=== PATIENT | male | born 1945 | race Caucasian/White ===

== ENCOUNTER 2016-12-09 11:37 | Inpatient (IN) | payer OTHER ==
--- NOTE | 2016-12-09 11:46 | CPEKG ---
Heart Rate: 69 RR Interval: 870 P-R Interval: 160 QRSD Interval: 126 QT Interval: 400 QTC Interval: 429 P [place]: 73 QRS [place]: -62 T Wave [place]: 33 EKG Severity - ABNORMAL ECG - EKG Impression: SINUS RHYTHM EKG Impression: ATRIAL PREMATURE COMPLEX EKG Impression: NONSPECIFIC IVCD WITH LAD EKG Impression: LEFT VENTRICULAR HYPERTROPHY EKG Impression: ANTERIOR Q WAVES, POSSIBLY DUE TO LVH Electronically Signed By: Mitesh Araiza 09-Dec-2016 12:15:03
[2016-12-09] MEDS ORDERED: NS 500 ML IV ONE (11:47)
[2016-12-09] MEDS ORDERED: ASPIRIN 81 MG CHEWABLE TAB PO ONE (11:47)
[2016-12-09 12:03] LABS: % IMMATURE GRANULYOCYTES 0.4 % (0.0-1.1); ABSOLUTE IMMATURE GRANULOCYTES 0.03 10^3/uL (0.00-0.10); ADD DIFF? NO; ADD MORPH? NO; ADD SCAN? NO; ATYPICAL LYMPHOCYTE FLAG 10 (0-99); FRAGMENT RBC FLAG 0 (0-99); HEMATOCRIT 44.2 % (40.0-51.0); HEMOGLOBIN 14.6 g/dL (13.7-17.5); LEFT SHIFT FLG 0 (0-99); LIPEMIA HEMOLYSIS FLAG 80 (0-99); MEAN CELL HEMOGLOBIN 31.1 pg (27.9-34.1); MEAN CELL VOLUME 94.2 fL (81.5-99.8); MEAN PLATELET VOLUME 9.4 fL (8.7-11.7); PLATELET CLUMPS FLAG 10 (0-99); PLATELET COUNT 320 10^3/uL (150-400); RED BLOOD CELL COUNT 4.69 10^6/uL (4.40-6.38); RED CELL DISTRIBUTION WIDTH 13.3 % (11.5-15.2)
[2016-12-09 12:11] LABS: INR 1.35 (0.83-1.16); PROTIME(PATIENT) 16.7 SEC (12.0-15.0)
[2016-12-09 12:13] LABS: APTT 60.4 SEC (23.0-38.0)
--- NOTE | 2016-12-09 12:27 | EDPHY ---
H & P Stated Complaint: chest pain. Source: Patient, Old records, Other Exam Limitations: No limitations - Personal History Current Tetanus/Diphtheria Vaccine: Unsure Current Tetanus Diphtheria and Acellular Pertussis (TDAP): Unsure - Medical/Surgical History Hx Asthma: No Hx Chronic Respiratory Disease: No Hx Diabetes: No Hx Cardiac Disease: Yes Hx Renal Disease: No Hx Cirrhosis: No Hx Alcoholism: No Hx HIV/AIDS: No Hx Splenectomy or Spleen Trauma: No Other PMH: Aortic valve replacement 10 years ago, cardiac history- afib - Social History Smoking Status: Never smoked HPI/ROS: CHIEF COMPLAINT: Chest Pain HISTORY OF PRESENT ILLNESS: Patient has chest pain that originally started on Thursday. This was while traveling to [place] for [facility]. He was seen at an emergency department there and admitted to the hospital with a diagnosis of non STEMI. CT scan of the chest was performed and was negative for PE. Troponin was 3.39. He asked to be discharged home the following day on Thursday because his chest pain had resolved. He was discharged AMA although he had a heart catheterization planned for the following morning. He felt much better until Thursday afternoon. At that time he describes a. Of atrial fibrillation that lasted several hours and then resolved. This also happened again yesterday evening but lasted longer. During these times he has had some chest pain. Some shortness of breath. No lower extremity erythema edema. No abdominal pain. No nausea vomiting. Some mild cough. 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 While there, he made them aware of his scenario and they sent him to our facility by EMS for ACS workup. PRIOR CARDIAC WORKUP: Prior coronary artery disease with atrial valvulopathy, atrial fibrillation REVIEW OF SYSTEMS: Ten systems reviewed and are negative unless otherwise noted in the HPI EXAMINATION: General Appearance: Alert, no distress Head: normocephalic, atraumatic Eyes: Pupils equal and round, no conjunctival pallor or injection ENT, Mouth: Mucous membranes moist. Uvula midline. No erythema edema. Neck: Normal inspection, supple, non-tender Respiratory: Lungs are clear to auscultation. No wheezing, rhonchi or crackles. Cardiovascular: Regular rate and rhythm. Systolic murmur. Pulses intact distally symmetrically. Gastrointestinal: Abdomen is soft and nontender Back: non-tender, no bony abnormalities Neurological: A&O, nonfocal, normal gait. Strength is symmetric Skin: Warm and dry, no rash Extremities: Nontender, no pedal edema Psychiatric: Mood and affect normal DIFFERENTIAL DIAGNOSES: Including but not limited to in no particular order: Acute Chest Pain, ACS, Stable Angina, Pneumonia, PE, duodenitis, gastritis, esophagitis, GERD MDM: 12:00 p.m. Chest pain that originally started on Thursday while he was in [place]. He was actually admitted in [place] for a non STEMI. He signed himself out AMA on Thursday, 1 day prior to a scheduled heart catheterization. He was feeling significantly better at that time. However, his pain has returned intermittently since yesterday. He has also been in and out of atrial fibrillation. Hospice Nurse evaluated him today and sent him here due to the above. He is in no acute distress. His EKG does not show a STEMI at this time. Troponin is pending. We will proceed with admission to the hospitalist, and Dr. Pederson has already scheduled him for heart catheterization tomorrow morning. 1:00 p.m. Acute chest pain with elevated troponin. His troponin is elevated significantly better than what it was on Thursday as documented in his paperwork from the [facility]. He is not hypotensive. He has no ST elevation on EKG. He does have intermittent atrial fibrillation that is rate controlled. He is in no acute distress. I discussed the case with Dr. Pederson. He would like the patient admitted to the hospitalist and he will plan for a catheterization in the morning. Discussed the case with the hospitalist, the patient will be admitted to Dr. monroy to a PCU bed. He is admitted in stable condition. He takes Plavix and Pradaxa daily. He has also had aspirin that he chewed while in route with EMS to this facility. EKG: Interpreted by Dr. Jose G Black with PVCs. No acute ischemia SUPERVISION: Patient was evaluated in conjunction with the supervising physician. Please see their note for details. (Venkatesh Rosario) Constitutional: Initial Vital Signs Temperature (C) 36.9 C 12/09/16 11:37 Heart Rate 69 12/09/16 11:37 Respiratory Rate 18 12/09/16 11:37 Blood Pressure 141/80 H 12/09/16 11:37 O2 Sat (%) 95 12/09/16 11:37 O2 Delivery Mode Room Air Allergies/Adverse Reactions: No Known Allergies Allergy (Unverified 09/11/11 11:09) Home Medications: Medication Instructions Recorded Atorvastatin Calcium [Lipitor 20 20 mg PO DAILY 12/09/16 mg (*)] Cholecalciferol Vit D3 [Vitamin D3 1,000 units PO DAILY 12/09/16 (*)] Cyanocobalamin [Vitamin B12 (*)] 1,000 mcg PO DAILY 12/09/16 Dabigatran Etexilate Mesyl 150 mg PO BID 12/09/16 [Pradaxa 150 MG (*)] Finasteride [Propecia] 1 mg PO HS 12/09/16 Lisinopril [Zestril 5 mg (*)] 5 mg PO DAILY 12/09/16 Nebivolol HCl [Bystolic 5 mg (*)] 5 mg PO DAILY 12/09/16 lamoTRIgine [LamICTAL XR] 75 mg PO HS 12/09/16 Departure - Departure Disposition: [facility] Clinical Impression: Acute coronary syndrome Condition: Good
[2016-12-09 12:34] LABS: ANION GAP 10 mEq/L (8-16); CALCIUM 10.1 mg/dL (8.5-10.4); CARBON DIOXIDE 27 mEq/l (22-31); CHLORIDE 104 mEq/L (97-110); GLOMERULAR FILTRATION RATE > 60; GLUCOSE 126 mg/dL (70-100); POTASSIUM 4.8 mEq/L (3.5-5.2); SODIUM 141 mEq/L (134-144)
[2016-12-09 12:43] LABS: TROPONIN I 0.216 ng/mL (0-0.034)
[2016-12-09] MEDS ORDERED: ONDANSETRON 4 MG/2 ML VIAL IVP PRN (14:36)
[2016-12-09] MEDS ORDERED: ACETAMINOPHEN 325 MG TAB PO PRN (14:36)
[2016-12-09] MEDS ORDERED: ONDANSETRON DISINTEGRATING 4 MG TAB PO PRN (14:36)
[2016-12-09] MEDS: NEBIVOLOL HCL 5 MG TAB PO SCH (16:57)
--- NOTE | 2016-12-09 17:12 | PDGENHP ---
History and Physical - Chief Complaint Acute chest pain - History of Present Illness PCP: Dr. Carranza Primary jukebox route driver: Dr. Pederson Primary neurologist: Dr. Macedo HPI: 71-year-old male presenting with acute chest pain characterized as pressure located in his central chest with associated shortness of breath and nonproductive cough, onset of symptoms on the day prior to presentation, duration approximately 1 hour and resolving without intervention. Patient reports that he had been at rest when the symptoms began and they felt similar in character to his previous atrial fibrillation. They were much less in severity then the chest pain which he has experienced on 12/05, secondary to a non ST elevation myocardial infarction while he was visiting family in [place]. Prior to that event, the patient had otherwise been feeling well and he had completed his normal exercise routine on 12/04 without any chest pain or exertional symptoms. History Information - Allergies/Home Medication List Allergies/Adverse Reactions: No Known Allergies Allergy (Unverified 09/11/11 11:09) Home Medications: Atorvastatin Calcium [Lipitor 20 mg (*)] 20 mg PO DAILY 12/09/16 [Last Taken ] Cholecalciferol Vit D3 [Vitamin D3 (*)] 1,000 units PO DAILY 12/09/16 [Last Taken Unknown] Cyanocobalamin [Vitamin B12 (*)] 1,000 mcg PO DAILY 12/09/16 [Last Taken Unknown ] Dabigatran Etexilate Mesyl [Pradaxa 150 MG (*)] 150 mg PO BID 12/09/16 [Last Taken 12/08/16 21:00] Finasteride [Propecia] 1 mg PO HS 12/09/16 [Last Taken 12/08/16] Lisinopril [Zestril 5 mg (*)] 5 mg PO DAILY 12/09/16 [Last Taken 12/09/16] Nebivolol HCl [Bystolic 5 mg (*)] 5 mg PO DAILY 12/09/16 [Last Taken 12/08/16] lamoTRIgine [LamICTAL XR] 75 mg PO HS 12/09/16 [Last Taken 12/08/16] I have personally reviewed and updated: family history, medical history, social history, surgical history - Past Medical History atrial fibrillation (Symptomatic with Maze procedure at [facility], subsequent ablation), coronary artery disease (Recent non ST elevation myocardial infarction, no catheterization performed) Additional medical history: Seizure disorder. 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 Review of Systems ROS: 10pt was reviewed & negative except for what was stated in HPI & below Cardiac: Reports: chest pain Respiratory: Reports: cough, shortness of breath Physical Exam Temp Pulse Resp BP Pulse Ox 36.7 C 68 18 147/88 H 95 12/09/16 15:34 12/09/16 16:57 12/09/16 15:34 12/09/16 15:34 12/09/16 15:34 Constitutional: no apparent distress, appears nourished, not in pain Eyes: PERRL, anicteric sclera, EOMI Ears, Nose, Mouth, Throat: moist mucous membranes, hearing normal, ears appear normal, no oral mucosal ulcers Cardiovascular: regular rate and rhythym, systolic murmur (2/6 at the sternum), No tachycardia, No edema Respiratory: no respiratory distress, no rales or rhonchi, clear to auscultation Gastrointestinal: normoactive bowel sounds, soft, non-tender abdomen, no palpable masses Skin: warm, normal color, no rashes or abrasions, no fluctuance, no induration, No mottled Neurologic: AAOx3, sensation intact bilaterally, other (Some word-finding difficulty and thought blocking), No weakness Psychiatric: interacting appropriately, not anxious, not encephalopathic, thought process linear Lab Data & Imaging Review 12/09/16 11:45 12/09/16 11:45 WBC 8.32 10^3/uL (3.80-9.50) 12/09/16 11:45 RBC 4.69 10^6/uL (4.40-6.38) 12/09/16 11:45 Hgb 14.6 g/dL (13.7-17.5) 12/09/16 11:45 Hct 44.2 % (40.0-51.0) 12/09/16 11:45 MCV 94.2 fL (81.5-99.8) 12/09/16 11:45 MCH 31.1 pg (27.9-34.1) 12/09/16 11:45 MCHC 33.0 g/dL (32.4-36.7) 12/09/16 11:45 RDW 13.3 % (11.5-15.2) 12/09/16 11:45 Plt Count 320 10^3/uL (150-400) 12/09/16 11:45 MPV 9.4 fL (8.7-11.7) 12/09/16 11:45 Neut % (Auto) 72.4 % (39.3-74.2) 12/09/16 11:45 Lymph % (Auto) 15.1 % (15.0-45.0) 12/09/16 11:45 [place] % (Auto) 8.7 % (4.5-13.0) 12/09/16 11:45 Eos % (Auto) 2.8 % (0.6-7.6) 12/09/16 11:45 Baso % (Auto) 0.6 % (0.3-1.7) 12/09/16 11:45 Nucleat RBC Rel Count 0.0 % (0.0-0.2) 12/09/16 11:45 Absolute Neuts (auto) 6.03 10^3/uL (1.70-6.50) 12/09/16 11:45 Absolute Lymphs (auto) 1.26 10^3/uL (1.00-3.00) 12/09/16 11:45 Absolute Monos (auto) 0.72 10^3/uL (0.30-0.80) 12/09/16 11:45 Absolute Eos (auto) 0.23 10^3/uL (0.03-0.40) 12/09/16 11:45 Absolute Basos (auto) 0.05 10^3/uL (0.02-0.10) 12/09/16 11:45 Absolute Nucleated RBC 0.00 10^3/uL (0-0.01) 12/09/16 11:45 Immature Gran % 0.4 % (0.0-1.1) 12/09/16 11:45 Immature Gran # 0.03 10^3/uL (0.00-0.10) 12/09/16 11:45 PT 16.7 SEC (12.0-15.0) H 12/09/16 11:45 INR 1.35 (0.83-1.16) H 12/09/16 11:45 APTT 60.4 SEC (23.0-38.0) H 12/09/16 11:45 Sodium 141 mEq/L (134-144) 12/09/16 11:45 Potassium 4.8 mEq/L (3.5-5.2) 12/09/16 11:45 Chloride 104 mEq/L (97-110) 12/09/16 11:45 Carbon Dioxide 27 mEq/l (22-31) 12/09/16 11:45 Anion Gap 10 mEq/L (8-16) 12/09/16 11:45 BUN 19 mg/dL (7-23) 12/09/16 11:45 Creatinine 1.0 mg/dL (0.7-1.3) 12/09/16 11:45 Estimated GFR > 60 12/09/16 11:45 Glucose 126 mg/dL (70-100) H 12/09/16 11:45 Calcium 10.1 mg/dL (8.5-10.4) 12/09/16 11:45 Troponin I 0.216 ng/mL (0-0.034) H 12/09/16 11:45 NT-Pro-B Natriuret Pep 1420 pg/mL (0-125) H 12/09/16 11:45 Visualized and Interpreted Chest x-ray results: Yes Chest X-Ray results: other (Cardiomegaly without effusions) Visualized and Interpreted EKG results: Yes EKG Interpretation: Positive for: other (Normal sinus rhythm with biphasic T- wave in lead 3, poor R-wave progression in lead V3 through V4, isolated ST elevation in V3) Assessment & Plan Assessment: 71-year-old male presents with acute chest pain in the setting of recent non ST elevation myocardial infarction Plan: 1. Chest pain. Acute, new problem this provider, further workup indicated. Potential etiologies include of all vein non ST-elevation myocardial infarction versus post VT pericarditis versus symptomatic atrial fibrillation. -NPO in a.m., followed by cardiac catheterization per Dr. Pederson -reviewed outside records including 12/05 diagnostic study reports including CT angiograms demonstrating no evidence of pulmonary embolism, indication that his echocardiogram was normal -hold on follow-up echo unless requested by DrGisselle while -monitor on telemetry for recurrent arrhythmia with rapid ventricular response -repeat troponin level in a.m. 2. Coronary artery disease. Chronic, with non ST-elevation myocardial infarction on 12/05 the peak troponin of 3.4, current troponin level is most likely down trending from that event -continue Plavix, statin, beta-mikel, CONNOR-inhibitor -patient received full-dose aspirin on the day of this presentation -cardiac risk stratification as outlined above 3. Permanent atrial fibrillation and atrial flutter. Reviewed outside records including 05/15/[address] Bruno Neville, characterized patient's arrhythmia as combination of atrial fibrillation and atrial flutter, receiving DC cardioversion -continue to monitor on telemetry for RVR -continue on Pradaxa and beta-mikel Diet. Cardiac, NPO in a.m. Prophylaxis. Risk patient, on Pradaxa Code. Full Disposition. Anticipated discharge is 12/10, pending further workup as outlined above. I have discussed patient's presentation with Yesi Mccoy, hospitalist provider, she has signed out the patient to me for admission after receiving report from our emergency department.
[2016-12-09] MEDS: DABIGATRAN ETEXILATE MESYL 150 MG CAP PO SCH (21:00)
[2016-12-09] MEDS: LAMOTRIGINE 25 MG PO SCH (21:00)
[2016-12-09] MEDS ORDERED: LAMOTRIGINE 75 MG PO SCH (21:00)
[2016-12-09] MEDS: FINASTERIDE 1 MG PO SCH (21:03)
[2016-12-10 05:30] LABS: % IMMATURE GRANULYOCYTES 0.4 % (0.0-1.1); ABSOLUTE IMMATURE GRANULOCYTES 0.03 10^3/uL (0.00-0.10); ADD DIFF? NO; ADD MORPH? NO; ADD SCAN? NO; ATYPICAL LYMPHOCYTE FLAG 30 (0-99); FRAGMENT RBC FLAG 0 (0-99); HEMATOCRIT 37.9 % (40.0-51.0); HEMOGLOBIN 12.5 g/dL (13.7-17.5); LEFT SHIFT FLG 0 (0-99); LIPEMIA HEMOLYSIS FLAG 80 (0-99); MEAN CELL HEMOGLOBIN 30.5 pg (27.9-34.1); MEAN CELL VOLUME 92.4 fL (81.5-99.8); MEAN PLATELET VOLUME 9.3 fL (8.7-11.7); PLATELET CLUMPS FLAG 0 (0-99); PLATELET COUNT 298 10^3/uL (150-400); RED CELL DISTRIBUTION WIDTH 13.3 % (11.5-15.2)
[2016-12-10 05:59] LABS: ANION GAP 7 mEq/L (8-16); CARBON DIOXIDE 25 mEq/l (22-31); CHLORIDE 107 mEq/L (97-110); GLOMERULAR FILTRATION RATE > 60; GLUCOSE 84 mg/dL (70-100); POTASSIUM 5.1 mEq/L (3.5-5.2); SODIUM 139 mEq/L (134-144)
[2016-12-10 06:10] LABS: TROPONIN I 0.162 ng/mL (0-0.034)
--- NOTE | 2016-12-10 09:13 | PDCARCONS ---
Cardiology Consult Chief Complaint: chest discomfort Requesting Physician: Dr. Pederson History of Present Illness: HPI: Regulo is a 71 year old man with a history of atrial fibrillation s/p MAZE, recent NSTEMI, hyperlipidemia, bicuspid aortic valve s/p replacement and seizure disorder. The patient visited his sister in [place] last night (12/04). On Thursday afternoon he started feeling a tightness in the back of his neck. He though he had pulled a muscle from some physical work earlier in the day; however, the pain radiated to his sternum and it became painful to breathe. The pain was described as a dull ache 4/10 in severity. He presented to the emergency department at [facility] where he was found to have a positive troponin and was believed to have an NSTEMI. The patient had cardiac catheterization scheduled in [place], but cancelled this procedure AMA as he was feeling better. The patient felt generally well until Thursday when the chest discomfort started to return. He had a scheduled follow up with Dr. Pederson and was advised to go to the emergency department after review of his records and history. The patient does not smoke. He is not having active chest discomfort. He denies shortness of breath, palpitations, syncope, near-syncope or other cardiac symptoms. Assessment/Plan: 1. Chest discomfort with elevated troponin now trending down (0.216 ng/mL yesterday, 0.162 ng/mL). His 12-lead EKG is abnormal showing Q waves in V1 and V2 as well as dominant R wave in V1and V2 LAFB, non-specific ST T wave abnormalities, and LVH. We will proceed with cardiac catheterization for objective assessment of his coronary perfusion. Took one dose of Pradaxa last night. I have explained the risks, expected benefits and potential complications of this course of action with the patient and he wishes to proceed as planned. Some potential benefits include angina relief, definitive assessment of coronary anatomy and LV function. Complications have been described as , permanent and disabling stroke, heart attack, abnormal heart rhythm, bleeding and damage to blood vessels resulting in tissue or limb loss. Bleeding is a particular issue in his case becasue of the need of full dose anticoagulation. 2. Atrial fibrillation s/p MAZE. In normal sinus rhythm today. History Information - Allergies/Home Medication List Allergies/Adverse Reactions: No Known Allergies Allergy (Unverified 09/11/11 11:09) Home Medications: Atorvastatin Calcium [Lipitor 20 mg (*)] 20 mg PO DAILY 12/09/16 [Last Taken ] Cholecalciferol Vit D3 [Vitamin D3 (*)] 1,000 units PO DAILY 12/09/16 [Last Taken Unknown] Cyanocobalamin [Vitamin B12 (*)] 1,000 mcg PO DAILY 12/09/16 [Last Taken Unknown ] Dabigatran Etexilate Mesyl [Pradaxa 150 MG (*)] 150 mg PO BID 12/09/16 [Last Taken 12/08/16 21:00] Finasteride [Propecia] 1 mg PO HS 12/09/16 [Last Taken 12/08/16] Lisinopril [Zestril 5 mg (*)] 5 mg PO DAILY 12/09/16 [Last Taken 12/09/16] Nebivolol HCl [Bystolic 5 mg (*)] 5 mg PO DAILY 12/09/16 [Last Taken 12/08/16] lamoTRIgine [LamICTAL XR] 75 mg PO HS 12/09/16 [Last Taken 12/08/16] I have personally reviewed and updated: family history, medical history, social history, surgical history - Past Medical History atrial fibrillation, hyperlipidemia - Surgical History Reports: ablation Additional surgical history: bicuspid valve - Family History Positive for: CAD - Social History Smoking Status: Never smoked Alcohol Use: Sober (Previous alcohol abuse) Drug Use: None Cardiac History - Cardiac History Past Cardiac History: ABLATION Cardiac Risk Factors: lipidemia, age > 65, male Timing/Duration: Days Severity Scale: 4 Location: substernal Activities at Onset: activity SKYLER Risk Evaluation age greater or equal to 65: yes greater or equal to 3 CAD risk factors: yes known CAD(stenosis greater or eqaul to 50%): no ASA use in past 7 days: yes severe angina(greater or equal to 2 episodes in 24hrs): no EKG ST changes greater or equal to 0.5mm: yes positive cardiac marker: yes Total Score: 6 SKYLER Score: 40.9% risk Age in Years: 65-74 Sex: Male Physical Exam Temp Pulse Resp BP Pulse Ox 36.7 C 61 17 138/67 H 96 12/10/16 07:19 12/10/16 07:19 12/10/16 07:19 12/10/16 07:19 12/10/16 07:19 Constitutional: no apparent distress, appears nourished, not in pain Cardiovascular: regular rate and rhythym, systolic murmur, No edema Peripheral Pulses: 2+: carotid (R), carotid (L) Respiratory: no respiratory distress Gastrointestinal: normoactive bowel sounds Skin: warm, normal color Psychiatric: interacting appropriately, not anxious Lymph, Heme, Immunologic: no cervical LAD Lab and Imaging 12/10/16 04:27 12/10/16 04:27 WBC 6.70 10^3/uL (3.80-9.50) 12/10/16 04:27 RBC 4.10 10^6/uL (4.40-6.38) L 12/10/16 04:27 Hgb 12.5 g/dL (13.7-17.5) L 12/10/16 04:27 Hct 37.9 % (40.0-51.0) L 12/10/16 04:27 MCV 92.4 fL (81.5-99.8) 12/10/16 04:27 MCH 30.5 pg (27.9-34.1) 12/10/16 04:27 MCHC 33.0 g/dL (32.4-36.7) 12/10/16 04:27 RDW 13.3 % (11.5-15.2) 12/10/16 04:27 Plt Count 298 10^3/uL (150-400) 12/10/16 04:27 MPV 9.3 fL (8.7-11.7) 12/10/16 04:27 Neut % (Auto) 56.2 % (39.3-74.2) 12/10/16 04:27 Lymph % (Auto) 27.3 % (15.0-45.0) 12/10/16 04:27 [place] % (Auto) 10.1 % (4.5-13.0) 12/10/16 04:27 Eos % (Auto) 5.1 % (0.6-7.6) 12/10/16 04:27 Baso % (Auto) 0.9 % (0.3-1.7) 12/10/16 04:27 Nucleat RBC Rel Count 0.0 % (0.0-0.2) 12/10/16 04:27 Absolute Neuts (auto) 3.76 10^3/uL (1.70-6.50) 12/10/16 04:27 Absolute Lymphs (auto) 1.83 10^3/uL (1.00-3.00) 12/10/16 04:27 Absolute Monos (auto) 0.68 10^3/uL (0.30-0.80) 12/10/16 04:27 Absolute Eos (auto) 0.34 10^3/uL (0.03-0.40) 12/10/16 04:27 Absolute Basos (auto) 0.06 10^3/uL (0.02-0.10) 12/10/16 04:27 Absolute Nucleated RBC 0.00 10^3/uL (0-0.01) 12/10/16 04:27 Immature Gran % 0.4 % (0.0-1.1) 12/10/16 04:27 Immature Gran # 0.03 10^3/uL (0.00-0.10) 12/10/16 04:27 PT 16.7 SEC (12.0-15.0) H 12/09/16 11:45 INR 1.35 (0.83-1.16) H 12/09/16 11:45 APTT 60.4 SEC (23.0-38.0) H 12/09/16 11:45 Sodium 139 mEq/L (134-144) 12/10/16 04:27 Potassium 5.1 mEq/L (3.5-5.2) 12/10/16 04:27 Chloride 107 mEq/L (97-110) 12/10/16 04:27 Carbon Dioxide 25 mEq/l (22-31) 12/10/16 04:27 Anion Gap 7 mEq/L (8-16) L 12/10/16 04:27 BUN 22 mg/dL (7-23) 12/10/16 04:27 Creatinine 1.0 mg/dL (0.7-1.3) 12/10/16 04:27 Estimated GFR > 60 12/10/16 04:27 Glucose 84 mg/dL (70-100) 12/10/16 04:27 Calcium 9.0 mg/dL (8.5-10.4) 12/10/16 04:27 Troponin I 0.162 ng/mL (0-0.034) H 12/10/16 04:27 NT-Pro-B Natriuret Pep 1420 pg/mL (0-125) H 12/09/16 11:45 Visualized and Interpreted EKG results: Yes EKG Interpretation: Positive for: LVH, normal sinsus rhythm, NS ST wave abnormalities, other (LAFB), Q waves
[2016-12-10] MEDS: LISINOPRIL 5 MG TAB PO SCH (09:37)
[2016-12-10] MEDS: CYANO/VITAMIN B12 1000 MCG TAB PO SCH (09:37)
[2016-12-10] MEDS: ATORVASTATIN CALCIUM 20 MG TAB PO SCH (09:38)
[2016-12-10] MEDS: NEBIVOLOL HCL 5 MG TAB PO SCH (09:38)
[2016-12-10] MEDS: CHOLECALCIFEROL VIT D3 1,000 UNITS TAB PO SCH (09:38)
[2016-12-10] MEDS: DABIGATRAN ETEXILATE MESYL 150 MG CAP PO SCH (09:44)
[2016-12-10] MEDS ORDERED: NS 1,000 ML IV ONE (12:58)
[2016-12-10] MEDS ORDERED: DIAZEPAM 5 MG TAB PO ONE (12:58)
[2016-12-10] MEDS ORDERED: FAMOTIDINE 20 MG TAB PO ONE (12:58)
[2016-12-10] MEDS ORDERED: diphenhydrAMINE 25 MG CAP PO ONE ×2 (12:58→13:24)
[2016-12-10] MEDS ORDERED: ASPIRIN EC 325 MG TAB PO ONE (12:58)
--- NOTE | 2016-12-10 13:21 | CPEKG ---
Heart Rate: 55 RR Interval: 1091 P-R Interval: 172 QRSD Interval: 128 QT Interval: 456 QTC Interval: 437 P [place]: 63 QRS [place]: -63 T Wave [place]: 6 EKG Severity - ABNORMAL ECG - EKG Impression: SINUS RHYTHM EKG Impression: NONSPECIFIC IVCD WITH LAD EKG Impression: LEFT VENTRICULAR HYPERTROPHY EKG Impression: ANTERIOR Q WAVES, POSSIBLY DUE TO LVH Electronically Signed By: Chavez Henderson 11-Dec-2016 10:15:40
[2016-12-10] MEDS ORDERED: FAMOTIDINE 20 MG TAB ONE (13:24)
[2016-12-10] MEDS ORDERED: DIAZEPAM 5 MG TAB ONE (13:24)
[2016-12-10] MEDS ORDERED: fentaNYL 100 MCG/2 ML INJ ONE (14:26)
[2016-12-10] MEDS ORDERED: LIDOCAINE 1% 30 ML SDV ONE (14:26)
[2016-12-10] MEDS ORDERED: HEPARIN 10,000 UNIT/10 ML MDV ONE (14:27)
[2016-12-10] MEDS ORDERED: IOPAMIDOL (ISOVUE-370) 150 ML BTL IV ONE (14:27)
[2016-12-10] MEDS ORDERED: MIDAZOLAM 2 MG/2 ML VIAL ONE (14:27)
[2016-12-10] MEDS ORDERED: VERAPAMIL 5 MG/2 ML VIAL ONE (14:27)
[2016-12-10] MEDS ORDERED: BIVALIRUDIN 250 MG/5 ML VIAL IV ONE (14:58)
[2016-12-10] MEDS ORDERED: NITROGLYCERIN 1,500 MCG/15 ML VIAL MISC ONE (14:58)
--- NOTE | 2016-12-10 15:43 | PDDXCAT ---
Diagnostic Cath Note - . Date: 12/10/16 Intervention: None *Procedure 1. selective coronary angiography 2. abdominal aortogram Indication: CCS class IV angina, positive troponin, s/p NSTEMI in [place]. Access: Right radial artery (a plethysmography trace assisted Lasha's Test was used to document dual artery supply to the hand and index finger prior to access ). We moved to a right femoral approach half way through the case for further support as it was it difficult to access the right coronary artery. *Materials Left Heart Cath size: 5F, 6F (femoral) Left Heart Cath materials: JL3.5, JR4.0, pigtail, Brooks Brite XBC, Short J- Chrisney x 2. *Findings-Selective Coronary Angiography LM: The left main is ~8 mm in size and bifurcates into an LAD and circumflex system. There is no evidence of flow-limiting disease. LAD: The proximal LAD is ~4 mm in size. There is a 50% mid LAD lesion just distal to the first diagonal takeoff. There is no flow-limiting disease with SKYLER III flow throughout. LCX: The proximal left circumflex is dominant and ~3 mm in size. There are luminal irregularities consistent with atherosclerosis. Maximal luminal stenosis of 20% without flow-limiting disease and SKYLER III flow throughout. RCA: The right coronary artery was not selectively injected. It appears to be non-dominant with moderate luminal disease. We did not identify flow-limiting obstruction. AO: 134/66/91 mmHg Abdominal aortogram: The thoracic aorta is enlarged and tortuous. There is a pouch of the proximal thoracic aorta, presumably where to aorta was "deaired" during the aortic valve surgery. *Summary Complications: None Estimated blood loss: <50ml Closure method: TR Band, Angioseal Assessment/Conclusion: 1. Non-flow limiting [place] vessel coronary artery disease. Maximal luminal stenosis of 40-50% in the mid LAD just distal to the first diagonal takeoff. The lesion is hazy, which could be consistent with plaque rupture; however, with SKYLER III flow and no dye streaming or staining plaque rupture is less likely, the patient can be safely treated medically. There were luminal irregularities throughout the left-dominant system consistent with atherosclerosis and moderate coronary artery disease. 2. Aortopathy with an enlarged and tortuous thoracic aorta. This will need to continue to be followed with periodic echocardiogram. The right radial approach could not be used because of tortuosity. 3. We could not cross the aortic valve despite several attempts to do so an left heart catheterization was not performed. If repeat catheterization is performed, a femoral or left radial approach is recommended. Patient Problems: Problems Problem Status Onset Acute coronary syndrome Acute
[2016-12-10] MEDS ORDERED: NITROGLYCERIN 0.4 MG BTL SL PRN (16:55)
[2016-12-10] MEDS ORDERED: ATROPINE SULFATE 1 MG/10 ML SYR IVP PRN (16:55)
[2016-12-10 17:36] LABS: CHOLESTEROL 127 mg/dL (140-220); HIGH DENSITY LIPOPROTEIN 47 mg/dL (40-65); LDL/HDL RATIO 1.49 RATIO (1.00-3.64); LOW DENSITY LIPOPROTEIN 70 mg/dL (80-100); NON-HIGH DENSITY LIPOPROTEIN 80 mg/dL (90-129); TRIGLYCERIDE 53 mg/dL (40-150); VERY LOW DENSITY LIPOPROTEINS 10 mg/dL (8-25)
--- NOTE | 2016-12-10 17:56 | HOSPPROG ---
Hospitalist Progress Note Assessment/Plan: Assessment: 71-year-old male presents with acute chest pain in the setting of recent non ST elevation myocardial infarction Plan: 1. Chest pain. Acute, either 2/2 NSTEMI vs. rate-related ischemia -currently chest pain free -get Echo to r/o pericarditis/effusion as cause of symptoms 2. Coronary artery disease. Chronic, with non ST-elevation myocardial infarction on 12/05 the peak troponin of 3.4, current troponin level is down trending -d/w Dr. Nash, cath demonstrated hazy possible plaque in LAD but w/o features typical of plaque rupture, RCA non-dominant but could not access, no stents placed, medical mgmt recommended -cont ASA 81, ACEi, bblocker, statin (LDL at goal) -challenging cath, requiring attempt in R radial, then groin, unable to get cath across AV 3. Permanent atrial fibrillation and atrial flutter. Potential cause of ischemic symptoms, monitor on tele additional 24hrs -continue to monitor on telemetry for RVR -continue on Pradaxa and beta-mikel 4. Acute urinary retention. Patient unable to void post-cath, must remain supine -bladder scan, straight cath PRN -unable to safely discharge Diet. Cardiac Prophylaxis. Risk patient, on Pradaxa Code. Full Disposition. Anticipated discharge uncertain, upgrade to inpatient admission status re : anticipated LOS > 48hrs for reasonable medical necessity including CAD w/ recent NSTEMI and chest pain, cath unable to access any intervenable area , requiring ongoing tele monitoring as he is high risk of arrhythmia, and further w/u including echo in AM. Subjective: Patient reports he is unable to urinate, he is curious about cardiac rehab we counseled him about slowly progressing his level of physical activity moving forward Objective: Vital Signs Temp Pulse Resp BP Pulse Ox 36.7 C 61 17 138/67 H 96 12/10/16 07:19 12/10/16 07:19 12/10/16 07:19 12/10/16 07:19 12/10/16 07:19 Laboratory Results 12/10/16 04:27 12/10/16 04:27 12/09/16 12/10/16 12/11/16 05:59 05:59 05:59 Intake Total 1500 Balance 1500 PT 16.7 SEC (12.0-15.0) H 12/09/16 11:45 INR 1.35 (0.83-1.16) H 12/09/16 11:45 - Time Spent With Patient Time Spent with Patient: greater than 35 minutes Time Spent with Patient: Greater than 35 minutes spent on this patients care, greater than 50% of time spent counseling, educating, and coordinating care regarding the above mentioned plan. - Physical Exam Constitutional: no apparent distress, appears nourished, not in pain Cardiovascular: regular rate and rhythym, no murmur, rub, or gallop Neurologic: AAOx3 Psychiatric: not encephalopathic, thought process linear, anxious, No agitated ICD10 Worksheet Patient Problems: Problems Problem Status Onset Acute coronary syndrome Acute
[2016-12-10] MEDS ORDERED: HALOPERIDOL 1 MG TAB PO ONE (19:03)
[2016-12-10] MEDS: LAMOTRIGINE 25 MG PO SCH (19:53)
[2016-12-10] MEDS: FINASTERIDE 1 MG PO SCH (19:57)
[2016-12-11 07:26] VITALS: BP 119/65; PULSE 62; RESP 17; TEMP 97.7; O2SAT 98
[2016-12-11] MEDS: ATORVASTATIN CALCIUM 20 MG TAB PO SCH (08:24)
[2016-12-11] MEDS: CYANO/VITAMIN B12 1000 MCG TAB PO SCH (08:24)
[2016-12-11] MEDS: CHOLECALCIFEROL VIT D3 1,000 UNITS TAB PO SCH (08:24)
[2016-12-11] MEDS: LISINOPRIL 5 MG TAB PO SCH (08:24)
[2016-12-11] MEDS: NEBIVOLOL HCL 5 MG TAB PO SCH (08:25)
[2016-12-11] MEDS ORDERED: ASPIRIN EC 81 MG TAB PO SCH (09:00)
--- NOTE | 2016-12-11 09:35 | PDCARPN ---
Cardiology Progress Note Chief Complaint: 71 year old admitted with NSTEMI that occurred over the weekend. [facility] with non flow limiting CAD. 50% mid LAD. Tortuous vessels. Right groin access. Asymptomatic this am. Assessment/Plan: Assessment: 1. NSTEMI 2. CAD 3. PAF 4. sp bioprosthetic AVR Plan: -plavix 75 mg daily -hold pradaxa until Sat 12/13 -increase atorvastatin to 80 mg daily -echo pending this am -home after echo -follow up in our office in one week 12/11/16 09:33 Objective: Vital Signs (8 Hrs) Temp Pulse Resp BP Pulse Ox 12/11/16 07:23 36.5 C 62 17 119/65 98 12/11/16 04:00 36.8 C 66 18 91/63 L 94 Intake/Output (24 Hrs) 12/10/16 12/11/16 12/12/16 05:59 05:59 05:59 Intake Total 700 Output Total 800 Balance -100 Intake: Oral (ml) 700 Output: Urine (ml) 800 Urinal 800 Other: Weight 68 kg Number of Voids Toilet 2 Urinal 2 Bladder Scan Volume (ml) Toilet 57 Result Diagrams: 12/10/16 04:27 12/10/16 04:27 ICD10 Worksheet Patient Problems: Problems Problem Status Onset Acute coronary syndrome Acute
--- NOTE | 2016-12-11 11:05 | ECHO ---
[id number] + + [address] : : [place] [address] : : [phone] + + Adult Echocardiographic Report + + :Name: ADRIAN GRACE HStudy Date: 12/11/2016 10:32 AM : : Hospital Admission Number: [id number] Loc ation: 220: :: 1945 Gender: Male Height: 67 in : :Age: 71 yrs Race: WH Weight: 151 lb : :Reason For Study: Eval LV function : : BSA: 1.8 me ters2 : + + MMode/2D Measurements \T\ Calculations IVSd: 1.1 cm LVIDd: 5.3 cm EDV(Teich): Ao root diam: LVPWd: 0.89 cm 135.0 ml 4.6 cm LA dimension: 3.9 cm LVOT diam: 2.1 cmLVLd ap4: 7.9 cm SV(MOD-sp4): LVOT area: EDV(MOD-sp4): 65.0 ml 3.5 cm2 84.0 ml LVLs ap4: 6.5 cm ESV(MOD-sp4): 19.0 ml EF(MOD-sp4): 77.4 % Normal Measurement Values: + + :LVIDd (3.5-5.7cm) IVSd (0.6-1.1cm) LVPWd (0.6-1.1cm) Aortic Root (2.0-3.7cm)Left Atrium (1.5-4.0cm): :LV Vol(d) (76-115ml) LV Vol(s) (29-48ml) Ejec Fraction (50-65%)PV Carlos (0.6- 1.2m/s) TV Carlos (0.4-1.0m/s) : :MV E Carlos (0.8-1.0m/s)MV A Carlos (0.3-1.0m/s)LVOT Carlos (0.7-1.2m/s) Asc Ao Carlos ( 0.9-1.8m/s) : + + Doppler Measurements \T\ Calculations MV E max carlos: Ao V2 max: LV V1 max: SV(LVOT): 92.3 cm/sec 239.0 cm/sec 84.2 cm/sec 63.7 ml MV A max carlos: Ao max P.8 mmHg LV V1 max P.6 cm/sec Ao mean P.8 mmHg MV E/A: 1.4 12.0 mmHg LV V1 mean PG: Ao V2 mean: 1.0 mmHg 160.5 cm/sec LV V1 mean: Ao V2 VTI: 50.3 cm 55.2 cm/sec JESSICA(I,D): 1.3 cm2 LV V1 VTI: 18.4 cm JESSICA(V,D): 1.2 cm2 Left Ventricle The left ventricle is normal in size. There is mild concentric left ventricular hypertrophy. Left ventricular systolic function is normal. Ejection Fraction = 65-70%%. There is Doppler evidence for diastolic dysfunction. The left ventricular wall motion is normal. Atria The left atrial size is normal. Right atrial size is normal. Mitral Valve The mitral valve is normal in structure and function. There is moderate mitral annular calcification. There is no mitral regurgitation noted. Tricuspid Valve The tricuspid valve is normal in structure and function. Aortic Valve There is no aortic insufficiency. The prosthetic aortic valve is well- seated. Bioprosthetic leaflets are thin and move normally. The gradient is normal for this prosthetic aortic valve. Pulmonic Valve The pulmonic valve is normal in structure and function. There is no pulmonic valvular regurgitation. Great Vessels Moderate aortic root dilatation. Moderately dilated ascending aorta. Pericardium/Pleural There is no pericardial effusion. Conclusion Moderately dilated ascending aorta. There is mild concentric left ventricular hypertrophy. Ejection Fraction = 65-70%%. There is Doppler evidence for diastolic dysfunction. Moderate aortic root dilatation. Final Reading Physician: Christiano Pederson electronically signed on 12/11/2016 11:03 AM Ordering Physician: Sergio Nash Performed By: Chey Jurado, [employer]
--- NOTE | 2016-12-11 16:38 | PDDCSUM ---
Discharge Summary Discharge Summary: DISCHARGE SUMMARY FOLLOW-UP ITEMS: Follow up with Dr. Pederson next week DATE OF ADMISSION: 12/09/16 DATE OF DISCHARGE: 12/11/2016 DISCHARGE DIAGNOSES: 1. Chronic coronary artery disease 2. Recent non ST elevation myocardial infarction 3. Permanent atrial fibrillation and atrial flutter 4. Acute urinary retention 5. Acute chest pain 6. Mild cognitive impairment CONSULTATIONS: Cardiology PROCEDURES / IMAGING: Cardiac catheterization demonstrating 50% mid LAD lesion, tortuous vessels, unable to access non dominant right coronary artery, echocardiogram demonstrating diastolic dysfunction, normal ejection fraction, no focal wall motion abnormalities CHIEF COMPLAINT: Acute chest pain SUBJECTIVE: Patient is feeling well at time of discharge, no recurrent chest pain PHYSICAL EXAM ON DISCHARGE: Systolic blood pressure is 130, heart rate 60, afebrile overnight, satting well on room air, lungs are clear to auscultation bilaterally, patient is alert awake oriented x3 LABS ON DISCHARGE: Troponin 0.1 HOSPITAL COURSE BY PROBLEM: 1. Chronic coronary artery disease. Patient presented after he experienced a recent non ST elevation myocardial infarction on 12/05 with peak troponin of 3.4 and down trending troponin level thereafter. The patient did have some post myocardial infarction acute chest pain leading to this repeat presentation. Given that he had declined cardiac catheterization at the time of his acute event and that he was very high risk of critical stenosis, he was taken urgently to the cardiac bundle tier and labeler by Dr. Nash but no focal lesion was visualized. The patient did have a hazy lesion in the mid-LAD accounting for approximately 50% stenosis and he did have a non dominant right coronary artery which could not be accessed through the aortic valve, and it was unclear whether the patient had a experienced his acute event in that artery, but after attempts to access through the right radial and right groin, the procedure was stopped and the patient was determined to be most appropriate for medical management. That being said, the patient was considered to be high risk of potential a rhythmic complication recurrent angina so he was monitored on telemetry and required inpatient admission with reassessment of his ejection fraction an echocardiogram in the a.m.. His echocardiogram demonstrated no focal wall motion abnormalities so it is suspected that his original NSTEMI was the result of small vessel disease. His aspirin was adjusted to Plavix, his statin was increased in dosage, and he was continued on CONNOR-inhibitor and beta- mikel. He will follow up with Dr. Pederson next week. We recommended holding off on physical exertion until that time and then introducing him in to cardiac rehab. 2. Permanent atrial fibrillation and atrial flutter. Patient did experience what he considers fibrillation symptoms prior to presentation and this may have been a potentiate cause of his ischemic symptoms and NSTEMI. He did not have any evidence of acute rapid ventricular response during this hospitalization and he was continued on Pradaxa and beta-mikel. We recommended that he temporarily discontinue his Pradaxa until 12/13 given the recent cardiac catheterization and his risk of pseudoaneurysm formation. 3. Acute urinary retention. Patient was unable to void post catheterization but he did not require eventual straight catheterization. He was voiding safely time of discharge and should follow up with primary care provider for likely underlying BPH. 4. Mild cognitive impairment. The patient consistently demonstrated difficulty with understanding and retaining information and consequently a significant portion of his instructions were either hand written or type for the patient. There were concerns that he may not be receiving appropriate level of support in his home environment. I discussed our concerns regarding his cognitive state with Dr. Pederson, and Dr. Pederson will follow up with the patient's primary care provider and they will potentially refer him back to Dr. Macedo or for more extensive neuropsychiatric testing. 5. Acute chest pain. Most likely secondary to either AFib RVR or his recent NSTEMI. Patient is currently chest pain-free. DISCHARGE MEDICATIONS: Please see official discharge medication reconciliation sheet in chart , atorvastatin 80 daily, Plavix 75 daily, discontinue aspirin. Sublingual nitroglycerin prescribed. DISCHARGE INSTRUCTIONS: Follow up with Dr. Pederson next week, PCP thereafter. TIME SPENT: Greater than 30 minutes were spent on direct patient care, as well as discharge planning and preparation.
== END 2016-12-11 11:55 | disposition home or self-care (01) | DRG 281 ==
LOC: EDUNIT# → INTOOBSV 13:02 → F2W 15:13 → OBSVTOIN 12-10 17:57
PROVIDERS: ADMIT Internal Medicine; ATTEND Internal Medicine
DX: I25.10 Atherosclerotic heart disease of native coronary artery without angina pectoris (principal); I21.4 Non-ST elevation (NSTEMI) myocardial infarction; I48.92 Unspecified atrial flutter; I48.2 Chronic atrial fibrillation; R33.9 Retention of urine, unspecified
CPT/HCPCS: C1760; C1769; C1887; G0378; J0583; J1644; J2250; J3010; Q9967

== ENCOUNTER 2016-12-25 02:26 | Emergency (ER) | payer OTHER ==
[2016-12-25] MEDS ORDERED: ASPIRIN 81 MG CHEWABLE TAB PO ONE (02:33)
--- NOTE | 2016-12-25 02:40 | CPEKG ---
Heart Rate: 66 RR Interval: 909 P-R Interval: 188 QRSD Interval: 134 QT Interval: 416 QTC Interval: 436 P [place]: 78 QRS [place]: -67 T Wave [place]: 44 EKG Severity - ABNORMAL ECG - EKG Impression: SINUS RHYTHM EKG Impression: NONSPECIFIC IVCD WITH LAD EKG Impression: LEFT VENTRICULAR HYPERTROPHY EKG Impression: UNCHANGED IN COMPARISON TO PRIOR Electronically Signed By: Chavez Henderson 26-Dec-2016 16:26:06
[2016-12-25 02:52] LABS: % IMMATURE GRANULYOCYTES 0.3 % (0.0-1.1); ABSOLUTE IMMATURE GRANULOCYTES 0.03 10^3/uL (0.00-0.10); ADD DIFF? NO; ADD MORPH? NO; ADD SCAN? NO; ATYPICAL LYMPHOCYTE FLAG 0 (0-99); FRAGMENT RBC FLAG 0 (0-99); HEMATOCRIT 40.1 % (40.0-51.0); HEMOGLOBIN 13.1 g/dL (13.7-17.5); LEFT SHIFT FLG 0 (0-99); LIPEMIA HEMOLYSIS FLAG 80 (0-99); MEAN CELL HEMOGLOBIN 30.3 pg (27.9-34.1); MEAN CELL HEMOGLOBIN CONCENTR. 32.7 g/dL (32.4-36.7); MEAN CELL VOLUME 92.8 fL (81.5-99.8); MEAN PLATELET VOLUME 8.9 fL (8.7-11.7); PLATELET CLUMPS FLAG 20 (0-99); PLATELET COUNT 369 10^3/uL (150-400); RED BLOOD CELL COUNT 4.32 10^6/uL (4.40-6.38); RED CELL DISTRIBUTION WIDTH 13.3 % (11.5-15.2)
--- NOTE | 2016-12-25 03:08 | EDPHY ---
H & P Stated Complaint: cp Time Seen by Provider: 12/25/16 02:41 HPI/ROS: HPI The patient presents with chest pain which began around 2:00 a.m. this morning when he awoke in the night. The pain is a dull ache and is in his lower sternum , it radiates to his right scapula. The pain has been constant, it is not exertional, it is not associated with shortness of breath, nausea, vomiting, diaphoresis or dizziness. It feels somewhat similar to pain he has had previously. He was admitted to our hospital from December 09 to for cardiac evaluation. He underwent cardiac catheterization and was found to have CAD with 50% stenosis of the LAD, nondominant RCA which could not be accessed, no stents were placed. REVIEW OF SYSTEMS Constitutional: No fever, no chills. Eyes: No discharge. ENT: No sore throat. Cardiovascular: Positive for chest pain, no palpitations. Respiratory: No cough, no shortness of breath. Gastrointestinal: No abdominal pain, no vomiting. Genitourinary: No hematuria. Musculoskeletal: No back pain. Skin: No rashes. Neurological: No headache. PMHx: CAD, recent cardiac catheterization, being medically managed; atrial fibrillation, mild cognitive impairment Soc Hx: Lives at home with his PHYSICAL General Appearance: Alert, no distress Eyes: Pupils equal and round no pallor or injection ENT, Mouth: Mucous membranes moist Respiratory: There are no retractions, lungs are clear to auscultation Cardiovascular: Regular rate and rhythm, lower sternum is tender to palpation Gastrointestinal: Abdomen is soft and non-tender, no masses, bowel sounds normal Neurological: A&O, moves all extremities Skin: Warm and dry, no rashes Musculoskeletal: Neck is supple non tender Extremities: symmetrical, full range of motion Psychiatric: Patient is oriented X 3, there is no agitation Source: Patient, Old records Exam Limitations: No limitations - Personal History Current Tetanus/Diphtheria Vaccine: Yes Current Tetanus Diphtheria and Acellular Pertussis (TDAP): Yes - Medical/Surgical History Hx Asthma: No Hx Chronic Respiratory Disease: No Hx Diabetes: No Hx Cardiac Disease: Yes Hx Renal Disease: No Hx Cirrhosis: No Hx Alcoholism: No Hx HIV/AIDS: No Hx Splenectomy or Spleen Trauma: No Other PMH: Aortic valve replacement 12 years ago, cardiac history- afib, ablations for a fib - Social History Smoking Status: Never smoked Constitutional: Initial Vital Signs Temperature (C) 36.9 C 12/25/16 02:32 Heart Rate 72 12/25/16 02:32 Respiratory Rate 16 12/25/16 02:32 Blood Pressure 132/91 H 12/25/16 02:32 O2 Sat (%) 96 12/25/16 02:32 O2 Delivery Mode Room Air Allergies/Adverse Reactions: No Known Allergies Allergy (Unverified 12/25/16 02:30) Home Medications: Medication Instructions Recorded Cholecalciferol Vit D3 [Vitamin D3 1,000 units PO DAILY 12/09/16 (*)] Cyanocobalamin [Vitamin B12 (*)] 1,000 mcg PO DAILY 12/09/16 Dabigatran Etexilate Mesyl 150 mg PO BID 12/09/16 [Pradaxa 150 MG (*)] Finasteride [Propecia] 1 mg PO HS 12/09/16 Lisinopril [Zestril 5 mg (*)] 5 mg PO DAILY 12/09/16 Nebivolol HCl [Bystolic 5 mg (*)] 5 mg PO DAILY 12/09/16 lamoTRIgine [LamICTAL XR] 75 mg PO HS 12/09/16 Atorvastatin Calcium 80 mg PO DAILY #30 tablet 12/11/16 Clopidogrel Bisulfate [Clopidogrel] 75 mg PO DAILY #30 tablet 12/11/16 Nitroglycerin [Nitrostat 0.4 mg 0.4 mg SL PRN PRN #20 btl 12/11/16 (*)] Medical Decision Making - Diagnostics EKG Interpretation: EKG #1: Complete interpretation has been separately recorded in the [facility] archive. Summary impression: LVH, no ST segment elevation or depression EKG #2: Complete interpretation has been separately recorded in the [facility] archive. Summary impression: Unchanged from 1st EKG Imaging Results: Chest x-ray two view shows no cardiomegaly, no infiltrate, unchanged from prior , interpreted by me, radiology interpretation is pending. ED Course/Re-evaluation: In the emergency room, patient was kept on the monitor technician. He had no events. His pain continued in the emergency room, though was quite mild. Labs were checked and were unremarkable including repeat troponin. On reassessment, EKG was unchanged, without any ischemic changes. Given no EKG changes and no elevated troponin more than 4 hours after onset of pain, this pain is unlikely to be ischemic in etiology. The patient felt well enough to go home. I consulted with Dr. Tobin is the on-call relocation services specialist for Dr. Pederson. We reviewed the case. We agreed that the patient could be discharged and that his pain is unlikely to be cardiac, given negative serial troponins, EKGs. I have discussed this with the patient, he is comfortable going home. I have offered him admission, however he declines. I have asked that he follow up with his PMD in the next 1 day. I have advised that he use Tylenol as needed to treat any pain but have a low threshold to return to the emergency room if the pain is worse or if he develops any other concerning symptoms. Differential Diagnosis: This is a 71-year-old man with CAD, status post recent cardiac catheterization, who presents from home with chest pain which occurred while at rest in his sternum. On exam, he has normal vital signs and is well-appearing. He does not have any tenderness. Initial EKG is unremarkable. Differential diagnosis includes ACS, GERD, musculoskeletal pain. - Data Points Laboratory Results: Laboratory Results 12/25/16 02:39 12/25/16 02:39 12/25/16 12/25/16 12/25/16 05:59 02:39 02:39 WBC 10.52 10^3/uL H 10^3/uL (3.80-9.50) RBC 4.32 10^6/uL L 10^6/uL (4.40-6.38) Hgb 13.1 g/dL L g/dL (13.7-17.5) Hct 40.1 % % (40.0-51.0) MCV 92.8 fL fL (81.5-99.8) MCH 30.3 pg pg (27.9-34.1) MCHC 32.7 g/dL g/dL (32.4-36.7) RDW 13.3 % % (11.5-15.2) Plt Count 369 10^3/uL 10^3/uL (150-400) MPV 8.9 fL fL (8.7-11.7) Neut % (Auto) 70.7 % % (39.3-74.2) Lymph % (Auto) 15.0 % % (15.0-45.0) [place] % (Auto) 11.1 % % (4.5-13.0) Eos % (Auto) 2.3 % % (0.6-7.6) Baso % (Auto) 0.6 % % (0.3-1.7) Nucleat RBC Rel Count 0.0 % % (0.0-0.2) Absolute Neuts (auto) 7.44 10^3/uL H 10^3/uL (1.70-6.50) Absolute Lymphs (auto) 1.58 10^3/uL 10^3/uL (1.00-3.00) Absolute Monos (auto) 1.17 10^3/uL H 10^3/uL (0.30-0.80) Absolute Eos (auto) 0.24 10^3/uL 10^3/uL (0.03-0.40) Absolute Basos (auto) 0.06 10^3/uL 10^3/uL (0.02-0.10) Absolute Nucleated RBC 0.00 10^3/uL 10^3/uL (0-0.01) Immature Gran % 0.3 % % (0.0-1.1) Immature Gran # 0.03 10^3/uL 10^3/uL (0.00-0.10) Sodium 140 mEq/L mEq/L (134-144) Potassium 4.2 mEq/L mEq/L (3.5-5.2) Chloride 105 mEq/L mEq/L (97-110) Carbon Dioxide 25 mEq/l mEq/l (22-31) Anion Gap 10 mEq/L mEq/L (8-16) BUN 20 mg/dL mg/dL (7-23) Creatinine 1.1 mg/dL mg/dL (0.7-1.3) Estimated GFR > 60 Glucose 116 mg/dL H mg/dL (70-100) Calcium 9.1 mg/dL mg/dL (8.5-10.4) Troponin I 0.013 ng/mL ng/mL < 0.012 ng/mL ng/mL (0-0.034) (0-0.034) NT-Pro-B Natriuret Pep 776 pg/mL H pg/mL (0-125) Medications Given: Discontinued Medications Aspirin (Aspirin) 324 mg PO EDNOW ONE Stop: 12/25/16 02:34 Last Admin: 12/25/16 02:44 Dose: 324 mg Departure - Departure Disposition: Home, Routine, Self-Care Clinical Impression: Chest pain Qualifiers: Chest pain type: other chest pain Qualified Code(s): R07.89 - Other chest pain Condition: Good Instructions: Chest Pain (ED) Referrals: Emma Carranza MD [Primary Care Provider] - As per Instructions
[2016-12-25 03:14] LABS: ANION GAP 10 mEq/L (8-16); CALCIUM 9.1 mg/dL (8.5-10.4); CARBON DIOXIDE 25 mEq/l (22-31); CHLORIDE 105 mEq/L (97-110); CREATININE 1.1 mg/dL (0.7-1.3); GLOMERULAR FILTRATION RATE > 60; GLUCOSE 116 mg/dL (70-100); POTASSIUM 4.2 mEq/L (3.5-5.2); SODIUM 140 mEq/L (134-144)
[2016-12-25 03:26] LABS: TROPONIN I < 0.012 ng/mL (0-0.034)
--- NOTE | 2016-12-25 06:34 | CPEKG ---
Heart Rate: 55 RR Interval: 1091 P-R Interval: 200 QRSD Interval: 124 QT Interval: 456 QTC Interval: 437 P [place]: 24 QRS [place]: -64 T Wave [place]: -3 EKG Severity - ABNORMAL ECG - EKG Impression: SINUS RHYTHM EKG Impression: IVCD Electronically Signed By: Marly Lopez 25-Dec-2016 07:04:12
[2016-12-25 07:03] VITALS: BP 124/71
[2016-12-25] MEDS ORDERED: ACETAMINOPHEN 500 MG TAB PO ONE (07:20)
[2016-12-25 07:38] VITALS: PULSE 58; RESP 16; TEMP 98.2; O2SAT 96
== END 2016-12-25 07:38 | disposition home or self-care (01) ==
DX: R07.89 Other chest pain (principal); I25.10 Atherosclerotic heart disease of native coronary artery without angina pectoris; Z95.5 Presence of coronary angioplasty implant and graft

== ENCOUNTER → 2017-08-10 | Outpatient (CLI) | payer OTHER | LOC: BMCIMAGING 10:23 | PROVIDERS: ATTEND Orthopaedic Surgery Hand Surgery | DX: M17.0 Bilateral primary osteoarthritis of knee (principal); M25.561 Pain in right knee; M25.562 Pain in left knee ==

== ENCOUNTER → 2018-05-30 | Outpatient (CLI) | payer OTHER | LOC: BMCIMAGING 09:30 | PROVIDERS: ATTEND Family Medicine | DX: M25.561 Pain in right knee (principal); M23.91 Unspecified internal derangement of right knee ==

== ENCOUNTER → 2018-06-04 | Outpatient (CLI) | payer OTHER | LOC: BMCIMAGING 08:37 | PROVIDERS: ATTEND Physician Assistant | DX: M17.0 Bilateral primary osteoarthritis of knee (principal) ==

== ENCOUNTER → 2018-07-02 | Outpatient (CLI) | payer OTHER | LOC: BMCIMAGING 10:17 | PROVIDERS: ATTEND Physician Assistant | DX: S69.91XA Unspecified injury of right wrist, hand and finger(s), initial encounter (principal) ==

== ENCOUNTER → 2018-08-30 | Outpatient (CLI) | payer OTHER | LOC: BHFA 13:15 | PROVIDERS: ATTEND Internal Medicine Cardiovascular Disease | DX: I48.0 Paroxysmal atrial fibrillation (principal); I25.10 Atherosclerotic heart disease of native coronary artery without angina pectoris; I10 Essential (primary) hypertension ==

== ENCOUNTER 2018-08-31 09:08 | Day surgery (SDC) | payer OTHER ==
[2018-08-31] MEDS ORDERED: BENZOCAINE UNIT DOSE SPRAY HURRICAINE MM ONE (09:16)
[2018-08-31] MEDS ORDERED: MIDAZOLAM 2 MG/2 ML VIAL IVP ONE (09:16)
[2018-08-31] MEDS ORDERED: NS 500 ML IV ONE (09:16)
[2018-08-31] MEDS ORDERED: ATROPINE SULFATE 1 MG/10 ML SYR IVP ONE (09:16)
[2018-08-31] MEDS ORDERED: fentaNYL 100 MCG/2 ML INJ IVP ONE (09:16)
--- NOTE | 2018-08-31 09:31 | PDANEPAE ---
ANE History of Present Illness here for TERRI/CV ANE Past Medical History - Cardiovascular History Hx Hypertension: Yes Hx Arrhythmias: Yes Hx Chest Pain: No Hx Coronary Artery / Peripheral Vascular Disease: Yes Hx CHF / Valvular Disease: Yes Hx Palpitations: No - Pulmonary History Hx COPD: No Hx Asthma/Reactive Airway Disease: No Hx Recent Upper Respiratory Infection: No Hx Oxygen in Use at Home: No Hx Sleep Apnea: Yes - Endocrine History Hx Diabetes: No - Renal History Hx Renal Disorders: No - Liver History Hx Hepatic Disorders: No - Chronic Pain History Chronic Pain: Yes ANE Review of Systems Review of systems is: negative Review of Systems: - Exercise capacity Exercise capacity: >=4 METS ANE Patient History - Allergies Allergies/Adverse Reactions: No Known Allergies Allergy (Unverified 12/25/16 02:30) - Home Medications Home medications: home medication list seen and reviewed Home Medications: Cholecalciferol Vit D3 [Vitamin D3 (*)] 1,000 units PO DAILY 12/09/16 [Last Taken Unknown] Cyanocobalamin [Vitamin B12 (*)] 1,000 mcg PO DAILY 12/09/16 [Last Taken Unknown ] Dabigatran Etexilate Mesyl [Pradaxa 150 MG (*)] 150 mg PO BID 12/09/16 [Last Taken 12/08/16 21:00] Finasteride [Propecia] 1 mg PO HS 12/09/16 [Last Taken 12/08/16] Lisinopril [Zestril 5 mg (*)] 5 mg PO DAILY 12/09/16 [Last Taken 12/09/16] Nebivolol HCl [Bystolic 5 mg (*)] 5 mg PO DAILY 12/09/16 [Last Taken 12/08/16] lamoTRIgine [LamICTAL XR] 75 mg PO HS 12/09/16 [Last Taken 12/08/16] Pradaxa 08/31/18 [Last Taken 08/31/18 07:00] - NPO status NPO Status: no food or drink >8 hours - Smoking Hx Smoking Status: Never smoked ANE Labs/Vital Signs - Labs Result Diagrams: 08/31/18 09:30 - Vital Signs Vital Signs: reviewed preoperatively; see RN documention for details ANE Physical Exam - Airway Neck exam: FROM Mallampati Score: Class 1 - Pulmonary Pulmonary: no respiratory distress - Cardiovascular Cardiovascular: regular rate and rhythym - ASA Status ASA Status: III ANE Anesthesia Plan Anesthesia Plan: GA with mask
--- NOTE | 2018-08-31 10:08 | PDHPUP ---
History & Physical Update H&P update statement: This history and physical update is based on an assessment of the patient which was completed after admission or registration (within 24 hours), but prior to the surgery/procedure. H&P update: H&P reviewed & patient examined, no change in patient's condition since H&P completed
[2018-08-31 10:11] LABS: INR 1.44 (0.83-1.16); PROTIME(PATIENT) 17.7 SEC (12.0-15.0)
[2018-08-31] MEDS ORDERED: PROPOFOL 200 MG/20 ML VIAL ONE (10:25)
--- NOTE | 2018-08-31 10:37 | PDTEE1 ---
TERRI Cardioversion Procedure Procedure: electrical cardioversion, transesophageal echo Indications: atrial fibrillation Consent: signed and in chart Anticoagulation: other (pradaxa) Procedural Details: Pads were placed in anterior-posterior position. TERRI probe was advanced and standard images obtained. There is no evidence of left atrial or left atrial appendage thrombus. Synchronized cardioversion attempt #1: 200J Results: normal sinus rhythm Conclusions: successful TERRI cardioversion Patient Problems: Problems Problem Status Onset Chronic Disease Mgmt/Transitional Care Acute Acute coronary syndrome Acute
--- NOTE | 2018-08-31 10:38 | POSTANESTH ---
Post Anesthetic Evaluation Cardiovascular Status: Normal, Stable Respiratory Status: Normal, Stable Level of Consciousness/Mental Status: Moderately Sleepy Pain Control: Adequate, Prn Tx Ordered Nausea/Vomiting Control: Adequate, Prn Tx Ordered Complications Possibly Related to Anesthesia: None Noted
--- NOTE | 2018-09-01 06:46 | CPEKG ---
Test Reason : OPEN Blood Pressure : / mmHG Vent. Rate : 101 BPM Atrial Rate : 114 BPM P-R Int : 117 ms QRS Dur : 131 ms QT Int : 361 ms P-R-T Axes : -62 -64 079 degrees QTc Int : 468 ms Atrial fibrillation Left bundle branch block Confirmed by Chauncey Tobin ([id number]) on 09/01/2018 6:45:52 AM Referred By: Confirmed By:Chauncey Tobin
--- NOTE | 2018-09-01 06:47 | CPEKG ---
Test Reason : OPEN Blood Pressure : / mmHG Vent. Rate : 064 BPM Atrial Rate : 064 BPM P-R Int : 204 ms QRS Dur : 133 ms QT Int : 450 ms P-R-T Axes : 255 -66 004 degrees QTc Int : 465 ms Sinus or ectopic atrial rhythm Nonspecific IVCD with LAD Left ventricular hypertrophy Confirmed by Chauncey Tobin ([id number]) on 09/01/2018 6:46:24 AM Referred By: Confirmed By:Chauncey Tobin
--- NOTE | 2018-09-01 13:11 | ECHO ---
[email or web address] [place] [id number] Main: [phone] Fax: Transesophageal Echocardiography Name: ADRIAN GRACE MR#: [id number] Study Date: 08/31/2018 Study Time: 10:20 AM Date of : 1945 Age: 73 year(s) Height: ( ) Weight: ( ) BSA: Gender: Male Examination: TERRI Indication: Pre Cardioversion Image Quality: Contrast: Requested by: Rob Monge Heart Rate: Rhythm: BP: / Procedure Staff Alternative Medicine Practitioner: Lorne Cobos RDCS Reading Physician: Rob Monge MD Requesting Provider: TERRI Exam Details Measurements: Chambers Valvular Assessment AV/MV Valvular Assessment TV/PV Normal Normal Normal Name Value Range Name Value Range Name Value Range Additional Measurements: Findings: Left Ventricle: Normal global systolic LV function. No regional wall motion abnormality. Right Ventricle: Normal RV function. Left Atrial Appendage: Good color flow doppler in the left atrial appendage. No thrombus in left appendage. Mitral Valve: The mitral valve has been repaired. There is mild mitral regurgitation.. Aortic Valve: The aortic valve is a bioprosthesis. Normal functioning aortic valve prosthesis. Tricuspid Valve: The tricuspid valve appears normal. Pulmonic Valve: The pulmonic valve is normal in appearance and function. Aorta: Patient: ARDIAN GRACE Study Date: 08/31/2018 Page 1 of 2 10:20 AM The aorta is normal. Pericardium: No pericardial effusion. Exam Comments: Proceeded with successful elective DC cardioversion.. l1n (No Signature Object) Patient: ADRIAN GRACE Study Date: 08/31/2018 Page 2 of 2 10:20 AM [id number]
== END 2018-08-31 11:55 | disposition home or self-care (01) ==
LOC: FCATH 09:08
PROVIDERS: ATTEND Internal Medicine Interventional Cardiology
PROC: 5A2204Z Restoration of Cardiac Rhythm, Single (ICD-10-PCS; principal; 2018-08-31)
PROC: B245ZZ4 Ultrasonography of Left Heart, Transesophageal (ICD-10-PCS; principal; 2018-08-31)
DX: I48.91 Unspecified atrial fibrillation (principal); I34.0 Nonrheumatic mitral (valve) insufficiency
CPT/HCPCS: J2704

== ENCOUNTER 2018-09-24 00:14 | Emergency (ER) | payer OTHER ==
--- NOTE | 2018-09-24 00:23 | EDPHY ---
H & P Time Seen by Provider: 09/24/18 00:22 HPI/ROS: HPI CHIEF COMPLAINT: Fall with head injury, head laceration on Pradaxa HISTORY OF PRESENT ILLNESS: This is a 73-year-old male, history of AFib, on Pradaxa, presents emergency room after states that he got up out of bed and went to check to make sure his dogs were inside. After doing so he went to the bathroom he thinks he was going to use the bathroom however he states he "tripped on something" and then fell backwards with head strike on the ground. He is unsure exactly what he tripped over. He is not exactly sure why he felt he fell backwards with head strike on the ground. He denies LOC. He denies headache or neck pain. Denies chest pain or shortness of breath, denies palpitations. He arrives to the emergency room by private vehicle has an occiput laceration. He denies neck pain or chest pain or headache. Past Medical History: AFib on Pradaxa, hyperlipidemia, coronary artery disease , seizures, cognitive impairment Past Surgical History: Maze procedure Social History: Denies drugs alcohol tobacco. Family History: Noncontributory ROS REVIEW OF SYSTEMS: 10 Systems were reviewed and negative with the exception of the elements mentioned in the history of present illness. Exam Constitutional nontoxic, triage nursing summary reviewed, vital signs reviewed , awake/alert. Eyes normal conjunctivae and sclera, EOMI, PERRLA. HENT head/neck: Posterior left sided occiput punctate 2CM, laceration and hematoma present, matting of blood in the hair, no midline cervical spine pain or step-offs or crepitus, otherwise atraumatic head and neck exam moist mucus membranes, no epistaxis, neck supple/ no meningismus, no raccoon eyes. Respiratory clear to auscultation bilaterally, normal breath sounds, no respiratory distress, no wheezing. Cardiovascular rate normal, regular rhythm, no murmur, no edema, distal pulses normal. Gastrointestinal soft, non-tender, no rebound, no guarding, normal bowel sounds, no distension, no pulsatile mass. Genitourinary no CVA tenderness. Musculoskeletal no midline vertebral tenderness, full range of motion, no calf swelling, no tenderness of extremities, no meningismus, good pulses, neurovascularly intact. Skin pink, warm, & dry, no rash, skin atraumatic. Neurologic awake, alert and oriented x 3, AAOx3, moves all 4 extremities equally, motor intact, sensory intact, CN II-XII intact, normal cerebellar, normal vision, normal speech. Psychiatric normal mood/affect. Heme/Lymph/Immune no lymphadenopathy. Differential Diagnosis: Includes but is not limited to in a particular order vasovagal syncope, orthostatic syncope, dehydration, cardiac arrhythmia, bradycardia, electrolyte disturbance, intracranial bleed, skull fracture, scalp laceration, scalp hematoma, bleeding on Pradaxa Medical Decision Making: Plan for this patient patient thinks he tripped and fell, will obtain EKG, basic blood work, troponin, CT scan head without contrast CT cervical spine without contrast for trauma, chest x-ray and re- evaluate. Re-evaluation: EKG interpretation by me on record in [employer] system. Impression time of EKG 0050 sinus rhythm rate of 63, right bundle-branch block and left anterior fascicular block present. LVH present. When I compare this to his old EKG 2018 very similar morphology no acute change CT scan head without contrast and CT cervical spine without contrast faxed to me by direct Radiology at 1:06 a.m. Shows occipital scalp hematoma, diffuse atrophy, atherosclerosis, osteopenia degenerative disc disease at C5 but no acute traumatic fracture of the skull or intracranial bleed and no cervical spine fracture. 0132: Patient left occiput hematoma has a very small punctate laceration that has significant bleeding. He is on Pradaxa. Multiple august were placed in this wound to close the punctate laceration that is bleeding. A pressure dressing was applied. This patient is 73 years old on Pradaxa due to AFib. The patient fell. Has significant scalp hematoma with bleeding. The bleeding was controlled with pressure dressing and august. However the patient is elderly, has cognitive impairment, is on Pradaxa, and currently living alone as his is in [place] he reports. Plan will be to admit to the trauma service overnight for observation. There is no intracranial bleed or cervical spine fracture. Will consult Trauma surgery for admission observation. Laceration Repair Procedure: Verbal Consent was obtained, Under sterile conditions, left occiput hematoma, punctate 2CM Laceration. The wound was copiously irrigated with sterile fluid, the wound was explored for foreign bodies there were none visualized, the wound was explored with a sterile glove to the base. THERE IS A HEMATOMA, WITH MATTED BLOOD, AND A SMALL PULSATING BLEEDING, 2CM PUNCTATE LACERATION, MULTIPLE AUGUST WERE PLACED IN THIS WOUND, TWO WERE INITIALLY PLACED, HOWEVER IT CONTINUED TO BLEED, AND 3 MORE AUGUST WERE PLACED TO HELP BRING THE HEMATOMA/SMALL LAC TOGETHER TO HELP WITH HEMOSTATIS. PRESSURE DRESSING PLACED. FIVE AUGUST were placed in this patient 's left occiput laceration. He had good close approximation of the wound edges. He Tolerated this well. HE UNDERSTANDS TO HAVE AUGUST REMOVE DIN 7 DAYS. Patient had multiple august placed due to the left occiput hematoma bleeding, oozing despite 2 august over the punctate laceration. Multiple are applied for good hemostasis with pressure dressing. I have consult Trauma Surgery Dr. Rich, agrees for admission. Dr. Rich agrees for admission. Plan for observation given scalp hematoma on Pradaxa. Given his age, at home alone at this time, due to being out of town, mild cognitive decline. Plan for observation. 0212: Patient agrees for observation tonight. Reason for observation significant scalp hematoma, laceration and bleeding on Pradaxa. He is home alone. Mild cognitive decline. Would like to observe to make sure there is no further bleeding or delayed injury additionally has nobody home at this time to help him or watch him. He has agreed for admission observation. Chest x-ray one view: Cardiomegaly present. No evidence of acute traumatic injury. Source: Patient - Medical/Surgical History Hx Asthma: No Hx Chronic Respiratory Disease: No Hx Diabetes: No Hx Cardiac Disease: Yes Hx Renal Disease: No Hx Cirrhosis: No Hx Alcoholism: No Hx HIV/AIDS: No Hx Splenectomy or Spleen Trauma: No Other PMH: Aortic valve replacement 12 years ago, cardiac history- afib, ablations for a fib - Social History Smoking Status: Never smoked Constitutional: Initial Vital Signs Temperature (C) 36.4 C 09/24/18 00:21 Heart Rate 67 09/24/18 00:21 Respiratory Rate 16 09/24/18 00:21 Blood Pressure 162/89 H 09/24/18 00:21 O2 Sat (%) 97 09/24/18 00:21 O2 Delivery Mode Room Air Allergies/Adverse Reactions: No Known Allergies Allergy (Verified 09/25/18 18:01) Home Medications: Medication Instructions Recorded Cholecalciferol Vit D3 [Vitamin D3 1,000 units PO DAILY 12/09/16 (*)] Cyanocobalamin [Vitamin B12 (*)] 1,000 mcg PO DAILY 12/09/16 Dabigatran Etexilate Mesyl 150 mg PO BID 12/09/16 [Pradaxa 150 MG (*)] Finasteride [Propecia] 1 mg PO HS 12/09/16 Lisinopril [Zestril 5 mg (*)] 5 mg PO DAILY 12/09/16 Nebivolol HCl [Bystolic 5 mg (*)] 5 mg PO DAILY 12/09/16 lamoTRIgine [LamICTAL XR] 75 mg PO HS 12/09/16 Atorvastatin Calcium 80 mg PO DAILY #30 tablet 12/11/16 Clopidogrel Bisulfate [Clopidogrel] 75 mg PO DAILY #30 tablet 12/11/16 Nitroglycerin [Nitrostat 0.4 mg 0.4 mg SL PRN PRN #20 btl 12/11/16 (*)] Pradaxa 08/31/18 Medical Decision Making - Data Points Laboratory Results: Laboratory Results 09/24/18 00:53 09/24/18 00:53 Point of Care Test Results: Chemistry 09/24/18 00:56 POC Troponin I 0.00 ng/mL ng/mL (0.00-0.08) Departure - Departure Disposition: [facility] Inpatient Acute Clinical Impression: Fall, Scalp hematoma, Laceration of head Condition: Good Instructions: Laceration (ED), Contusion in Adults (ED), Staple Care (ED), Hematoma (ED) Referrals: Emma Carranza MD [Primary Care Provider] - As per Instructions
[2018-09-24 01:15] LABS: PLATELET COUNT 362 10^3/uL (150-400)
[2018-09-24 01:16] LABS: INR 1.25 (0.83-1.16); PROTIME(PATIENT) 15.9 SEC (12.0-15.0)
[2018-09-24] MEDS ORDERED: ONDANSETRON 4 MG/2 ML VIAL IVP PRN (02:59)
[2018-09-24] MEDS ORDERED: HYDROCODONE/APAP 5/325 TAB PO PRN (02:59)
[2018-09-24] MEDS ORDERED: LR 1,000 ML IV SCH (03:00)
--- NOTE | 2018-09-24 03:33 | GHP ---
[f rep st] HISTORY AND PHYSICAL DATE OF ADMISSION: 09/24/2018 CHIEF COMPLAINT: Asked to see the patient by the emergency room doctor for observation admission. HISTORY OF PRESENT ILLNESS: This 73-year-old gentleman, living alone currently as his is out of town, fell backwards striking his head, had brisk bleeding, which was addressed and closed with stap les. CT of head and neck was done, which was normal. PAST MEDICAL HISTORY: Relevant for the patient being on aspirin and Pradaxa for atrial fibrillation and previous heart surgery. ALLERGIES: None. CURRENT MEDICATIONS: Lisinopril, atorvastatin, lamotrigine, possibly aspirin, Pradaxa, finasteride. PREVIOUS SURGERY: Aortic valve replacement, porcine, 14 years ago; ablation for atrial fibrillation; appendectomy; hernia repair. REVIEW OF SYSTEMS: Denies diabetes, epilepsy, rheumatic fever. PHYSICAL EXAM: GENERAL: Pleasant, alert, oriented male. There is a history of dementia. HEENT: P ERL, EOMI. A head dress is in place over a 2 cm laceration stapled shut by the ER physician on the l eft occiput. NECK: Nontender. Full range of motion. No supraclavicular or axillary crepitus. CLA VICLES: Intact. UPPER EXTREMITIES: Appear atraumatic. POSTERIOR SPINAL ELEMENTS: Nontender to pa lpation. LUNGS: Clear. No murmur detected. ABDOMEN: Soft, benign. PELVIS: Stable to compressio n. LOWER EXTREMITIES: Unremarkable. ASSESSMENT: Scalp laceration secondary to a fall in a gentleman currently living alone. PLAN: Dr. Coronado in the emergency room felt it was appropriate to admit him overnight for observati on, so he would not go home by himself. Likely can be discharged later in the day. /[id number]/MODL
[2018-09-24 06:31] VITALS: BP 165/99
--- NOTE | 2018-09-24 06:41 | CPEKG ---
Test Reason : OPEN Blood Pressure : / mmHG Vent. Rate : 063 BPM Atrial Rate : 000 BPM P-R Int : 055 ms QRS Dur : 134 ms QT Int : 451 ms P-R-T Axes : 000 -63 010 degrees QTc Int : 462 ms Junctional rhythm RBBB and LAFB Left ventricular hypertrophy Anterior Q waves, possibly due to LVH Confirmed by Juan Diego Coronado ([id number]) on 09/24/2018 6:40:39 AM Referred By: Juan Diego Coronado Confirmed By:Juan Diego Coronado
== END 2018-09-24 06:31 | disposition still patient (30) ==
LOC: UNDOADMOB 01:39
PROC: 0HQ0XZZ Repair Scalp Skin, External Approach (ICD-10-PCS; principal; 2018-09-24)
DX: S01.01XA Laceration without foreign body of scalp, initial encounter (principal); S00.03XA Contusion of scalp, initial encounter; W01.10XA Fall on same level from slipping, tripping and stumbling with subsequent striking against unspecified object, initial encounter; Y92.012 Bathroom of single-family (private) house as the place of occurrence of the external cause; I48.91 Unspecified atrial fibrillation; E78.5 Hyperlipidemia, unspecified; I25.10 Atherosclerotic heart disease of native coronary artery without angina pectoris; G40.909 Epilepsy, unspecified, not intractable, without status epilepticus; Z79.82 Long term (current) use of aspirin; Z79.01 Long term (current) use of anticoagulants; Z95.3 Presence of xenogenic heart valve
CPT/HCPCS: 84484-ER

== ENCOUNTER 2018-09-25 17:52 | Inpatient (IN) | payer OTHER ==
[2018-09-25] MEDS ORDERED: NS 1,000 ML IV ONE (17:55)
[2018-09-25] MEDS ORDERED: IOPAMIDOL (ISOVUE 370) 100 ML BTL IV ONE (17:59)
[2018-09-25] MEDS ORDERED: SUCCINYLCHOLINE CHLORIDE 200 MG/10 ML SYR IVP ONE (18:06)
[2018-09-25] MEDS ORDERED: ETOMIDATE 40 MG/20 ML INJ IVP ONE (18:06)
[2018-09-25] MEDS ORDERED: DESMOPRESSIN ACETATE 18 MCG in NS 50 ML IV ONE (18:10)
--- NOTE | 2018-09-25 18:15 | EDPHY ---
H & P Stated Complaint: headache/ams Time Seen by Provider: 09/25/18 17:54 HPI/ROS: CHIEF COMPLAINT: Headache, vomiting, altered mental status HISTORY OF PRESENT ILLNESS: The patient is a 73-year-old man who was on Pradaxa and Plavix for history of bioprosthetic aortic valve repair and atrial fibrillation as well as coronary disease. Yesterday he fell and hit his head. He was seen here in the ER and had a negative CT but a large scalp hematoma and was observed overnight. He was discharged this morning. Daughter picked him up about an hour ago and he was complaining to her that he had a severe headache. They were going to go to dinner but on the way he asked her to black puller and vomited. He she states that he then became sleepy and deteriorated and complained of a worse headache. No focal deficits. Here at triage he was not able stand up to get out of the car. Severity: Severe Modifying factors: Worsening REVIEW OF SYSTEMS: Unable to obtain secondary to condition EXAM: GENERAL: Altered, unable to answer questions HEAD: Small laceration occiput with august in place, normocephalic. EYES: Pupils 3 and minimally reactive ENT: TMs normal, nares patent, oropharynx clear without exudates. Moist mucous membranes. NECK: Normal range of motion, supple without lymphadenopathy or JVD. LUNGS: Breath sounds clear to auscultation bilaterally and equal. No wheezes rales or rhonchi. HEART: Irregular, slightly tachycardic, no rubs or gallops. ABDOMEN: Soft, nontender, normoactive bowel sounds. No guarding, no rebound. No masses appreciated. BACK: No CVA tenderness, no spinal tenderness, step-offs or deformities EXTREMITIES: Normal range of motion, no pitting or edema. No clubbing or cyanosis. NEUROLOGICAL: Altered, cannot cooperate with exam, no speech, unable to stand up without assistance. Spontaneously moving all extremities. PSYCH: Unable to assess SKIN: Warm, dry, normal turgor, no visible rashes or lesions. Source: Patient Exam Limitations: No limitations - Personal History Current Tetanus/Diphtheria Vaccine: Unsure Current Tetanus Diphtheria and Acellular Pertussis (TDAP): Unsure - Medical/Surgical History Hx Asthma: No Hx Chronic Respiratory Disease: No Hx Diabetes: No Hx Cardiac Disease: Yes Hx Renal Disease: No Hx Cirrhosis: No Hx Alcoholism: No Hx HIV/AIDS: No Hx Splenectomy or Spleen Trauma: No Other PMH: Aortic valve replacement 12 years ago, cardiac history- afib, ablations for a fib - Social History Smoking Status: Never smoked Alcohol Use: Sober Drug Use: None Constitutional: Initial Vital Signs Temperature (C) 36.6 C 09/25/18 18:01 Heart Rate 107 H 09/25/18 18:01 Respiratory Rate 20 09/25/18 18:01 Blood Pressure 232/149 H 09/25/18 18:01 O2 Sat (%) 96 09/25/18 18:01 O2 Delivery Mode Ventilator Allergies/Adverse Reactions: No Known Allergies Allergy (Verified 09/25/18 18:01) Home Medications: Medication Instructions Recorded Cholecalciferol Vit D3 [Vitamin D3 1,000 units PO DAILY 12/09/16 (*)] Cyanocobalamin [Vitamin B12 (*)] 1,000 mcg PO DAILY 12/09/16 Dabigatran Etexilate Mesyl 150 mg PO BID 12/09/16 [Pradaxa 150 MG (*)] Finasteride [Propecia] 1 mg PO HS 12/09/16 Lisinopril [Zestril 5 mg (*)] 5 mg PO DAILY 12/09/16 Nebivolol HCl [Bystolic 5 mg (*)] 5 mg PO DAILY 12/09/16 lamoTRIgine [LamICTAL XR] 75 mg PO HS 12/09/16 Atorvastatin Calcium 80 mg PO DAILY #30 tablet 12/11/16 Clopidogrel Bisulfate [Clopidogrel] 75 mg PO DAILY #30 tablet 12/11/16 Nitroglycerin [Nitrostat 0.4 mg 0.4 mg SL PRN PRN #20 btl 12/11/16 (*)] Pradaxa 08/31/18 Medical Decision Making - Diagnostics EKG Interpretation: An EKG obtained and was read and documented in trace view. Please see trace view for full reading and report. Atrial fibrillation, poor baseline, no acute ischemic changes, similar to previous Imaging Results: Imaging Impressions Head CT 09/25/18 17:55 Impression: 1. New large subdural hematoma along the left cerebral convexity, 2 to 2.5 cm in thickness, results in marked mass effect and shift (intraventricular septum is shifted 2.6 cm to the right). Early downward herniation with obliteration of the prepontine space, suprasellar space, and ambient cisterns. 2. No evidence of acute cortical ischemia. Dr. SHARATH CARDOZA was present in the CT control row when the imaging was acquired. The large subdural hematoma was immediately evident to Dr. Cardoza and the stroke team. Imaging: Discussed imaging studies w/ call center rn Radiologist Procedures: Intubation: emergent intubation discussed with daughter. While manually bagging the patient and maintaining the airway, The patient was sedated with 20 mg of Etomidate and paralyzed with 100 mg of succinylcholine. A 7.5 endotracheal tube was placed using the Glidescope. It was placed at 22 cm at the teeth. Placement was confirmed by direct visualization, good color change, and bilateral breath sounds with absent gastric sounds. Procedure done by Sami castanon. Supervised by me. Chest x-ray is pending. Saturations improved significantly and the procedure was successful. ED Course/Re-evaluation: The patient was brought rapidly back to the department. He continued to deteriorate and was taken to the trauma room and intubated. He was not protecting his airway and was beginning to hyperventilate and contract. He was unable to answer questions. I have ordered Pradaxa and DDAVP and plasma. 6:20 p.m. The patient has a traumatic subdural on CT causing midline shift. I spoke with Dr. Hill immediately who is on his way and agrees with reversal and asks us to prep the OR. Patient is also on propofol drip and has been given Versed for seizure prophylaxis. Will allow elevated blood pressure for intracranial perfusion. Patient's daughter tells me that he is a full code. Patient has had a bed is been elevated. Dr. Hill is here and wishes to take directly to the OR. Critical Care Time: Critical care time spent by me, Dr. Cardoza exclusive with this patient was 45 minutes, exclusive of the PA time exclusive of procedures. The organ system that was at risk was neurologic and I gave critical medications to verses anticoagulation as well as sedation and efforts to decrease his intracranial pressure. to prevent worsening of the patient's condition - Data Points Laboratory Results: Laboratory Results 09/25/18 18:00 09/25/18 18:00 09/25/18 09/25/18 09/25/18 18:30 18:04 18:01 WBC RBC Hgb POC Hgb 12.9 gm/dL L gm/dL (13.7-17.5) Hct POC Hct 38 % L % (40-51) MCV MCH MCHC RDW Plt Count MPV Neut % (Auto) Lymph % (Auto) [place] % (Auto) Eos % (Auto) Baso % (Auto) Nucleat RBC Rel Count Absolute Neuts (auto) Absolute Lymphs (auto) Absolute Monos (auto) Absolute Eos (auto) Absolute Basos (auto) Absolute Nucleated RBC Immature Gran % Immature Gran # PT INR POC Sodium 142 mEq/L mEq/L (135-145) Sodium POC Potassium 3.9 mEq/L mEq/L (3.3-5.0) Potassium POC Chloride 107 mEq/L mEq/L (97-110) Chloride Carbon Dioxide POC Total CO2 22 mEq/L mEq/L (22-31) Anion Gap POC BUN 13 mg/dL mg/dL (7-23) BUN Creatinine POC Creatinine 1.1 mg/dL mg/dL (0.7-1.3) Estimated GFR Glucose POC Glucose 143 mg/dL H mg/dL (70-100) Calcium POC Troponin I 0.00 ng/mL ng/mL (0.00-0.08) Patient ABO/Rh A POSITIVE Platelet Orders Status READY 09/25/18 09/25/18 09/25/18 18:00 18:00 18:00 WBC 11.80 10^3/uL H 10^3/uL (3.80-9.50) RBC 3.95 10^6/uL L 10^6/uL (4.40-6.38) Hgb 12.4 g/dL L g/dL (13.7-17.5) POC Hgb Hct 38.0 % L % (40.0-51.0) POC Hct MCV 96.2 fL fL (81.5-99.8) MCH 31.4 pg pg (27.9-34.1) MCHC 32.6 g/dL g/dL (32.4-36.7) RDW 12.7 % % (11.5-15.2) Plt Count 393 10^3/uL 10^3/uL (150-400) MPV 8.8 fL fL (8.7-11.7) Neut % (Auto) 57.5 % % (39.3-74.2) Lymph % (Auto) 27.4 % % (15.0-45.0) [place] % (Auto) 10.8 % % (4.5-13.0) Eos % (Auto) 3.1 % % (0.6-7.6) Baso % (Auto) 0.8 % % (0.3-1.7) Nucleat RBC Rel Count 0.0 % % (0.0-0.2) Absolute Neuts (auto) 6.79 10^3/uL H 10^3/uL (1.70-6.50) Absolute Lymphs (auto) 3.23 10^3/uL H 10^3/uL (1.00-3.00) Absolute Monos (auto) 1.27 10^3/uL H 10^3/uL (0.30-0.80) Absolute Eos (auto) 0.36 10^3/uL 10^3/uL (0.03-0.40) Absolute Basos (auto) 0.10 10^3/uL 10^3/uL (0.02-0.10) Absolute Nucleated RBC 0.00 10^3/uL 10^3/uL (0-0.01) Immature Gran % 0.4 % % (0.0-1.1) Immature Gran # 0.05 10^3/uL 10^3/uL (0.00-0.10) PT 15.2 SEC H SEC (12.0-15.0) INR 1.18 H (0.83-1.16) POC Sodium Sodium 138 mEq/L mEq/L (135-145) POC Potassium Potassium 4.3 mEq/L mEq/L (3.5-5.2) POC Chloride Chloride 108 mEq/L mEq/L (97-110) Carbon Dioxide 23 mEq/l mEq/l (22-31) POC Total CO2 Anion Gap 7 mEq/L mEq/L (6-14) POC BUN BUN 15 mg/dL mg/dL (7-23) Creatinine 1.0 mg/dL mg/dL (0.7-1.3) POC Creatinine Estimated GFR > 60 Glucose 137 mg/dL H mg/dL (70-100) POC Glucose Calcium 8.9 mg/dL mg/dL (8.5-10.4) POC Troponin I Patient ABO/Rh Platelet Orders Status Medications Given: Propofol (Diprivan 10 Mg/Ml (Premix)) 100 mls @ 0 mls/hr IV CONT BUNNY; Titrate PRN Reason: Protocol Stop: 03/24/19 18:29 Last Admin: 09/25/18 18:12 Dose: 100 mls Discontinued Medications Diazepam (Valium) 5 mg IVP EDNOW ONE Stop: 09/25/18 18:27 Last Admin: 09/25/18 18:31 Dose: 5 mg Etomidate (Etomidate) 20 mg IVP EDNOW ONE Stop: 09/25/18 18:07 Last Admin: 09/25/18 18:07 Dose: 20 mg Gentamicin Sulfate (Garamycin) Confirm Administered Dose 240 mg .ROUTE .STK-MED ONE Stop: 09/25/18 18:53 Last Admin: 09/25/18 19:42 Dose: 240 mg Gentamicin Sulfate (Garamycin) Confirm Administered Dose 160 mg .ROUTE .STK-MED ONE Stop: 09/25/18 19:36 Last Admin: 09/25/18 19:43 Dose: 160 mg Sodium Chloride (Ns) 1,000 mls @ 0 mls/hr IV ONCE ONE; Wide Open PRN Reason: Protocol Stop: 09/25/18 17:56 Last Admin: 09/25/18 18:08 Dose: 1,000 mls Desmopressin Acetate 18 mcg/ (Sodium Chloride) 54.5 mls @ 100 mls/hr IV ONCE ONE Stop: 09/25/18 18:42 Last Admin: 09/25/18 18:34 Dose: 54.5 mls Levetiracetam (Keppra (Premix)) 100 mls @ 400 mls/hr IV ONCE ONE Stop: 09/25/18 19:14 Last Admin: 09/25/18 19:10 Dose: 100 mls Idarucizumab (Praxbind) 2.5 gm IVP Q5M BUNNY Stop: 09/25/18 18:21 Last Admin: 09/25/18 18:37 Dose: 2.5 gm Midazolam HCl (Versed) 5 mg IVP EDNOW ONE Stop: 09/25/18 18:27 Last Admin: 09/25/18 18:28 Dose: 5 mg Succinylcholine Chloride (Quelicin) 100 mg IVP EDNOW ONE Stop: 09/25/18 18:07 Last Admin: 09/25/18 18:10 Dose: 100 mg Point of Care Test Results: Chemistry 09/25/18 09/25/18 18:04 18:01 POC Sodium 142 mEq/L mEq/L (135-145) POC Potassium 3.9 mEq/L mEq/L (3.3-5.0) POC Chloride 107 mEq/L mEq/L (97-110) POC Total CO2 22 mEq/L mEq/L (22-31) POC BUN 13 mg/dL mg/dL (7-23) POC Creatinine 1.1 mg/dL mg/dL (0.7-1.3) POC Glucose 143 mg/dL H mg/dL (70-100) POC Troponin I 0.00 ng/mL ng/mL (0.00-0.08) ISTAT H&H 09/25/18 18:01 POC Hgb 12.9 gm/dL L gm/dL (13.7-17.5) POC Hct 38 % L % (40-51) Departure - Departure Disposition: [facility] Inpatient Acute Clinical Impression: Acute cerebral hemorrhage Condition: Critical
[2018-09-25 18:23] LABS: PLATELET COUNT 393 10^3/uL (150-400)
[2018-09-25] MEDS ORDERED: MIDAZOLAM 2 MG/2 ML VIAL ONE (18:26)
[2018-09-25] MEDS ORDERED: DIAZEPAM 5 MG/ML 1 ML SYR IVP ONE (18:26)
[2018-09-25] MEDS ORDERED: MIDAZOLAM 2 MG/2 ML VIAL IVP ONE (18:26)
[2018-09-25] MEDS ORDERED: PROPOFOL/EMULSION 100 ML IV SCH (18:30)
[2018-09-25 18:33] LABS: INR 1.18 (0.83-1.16); PROTIME(PATIENT) 15.2 SEC (12.0-15.0)
[2018-09-25] MEDS: IDARUCIZUMAB 2.5 GM/50 ML VIAL IVP SCH ×2 (18:33→18:37)
--- NOTE | 2018-09-25 18:33 | CPEKG ---
Test Reason : OPEN Blood Pressure : / mmHG Vent. Rate : 097 BPM Atrial Rate : 000 BPM P-R Int : 176 ms QRS Dur : 145 ms QT Int : 375 ms P-R-T Axes : 045 -64 108 degrees QTc Int : 477 ms Atrial fibrillation LVH with IVCD, LAD and secondary repol abnrm Probable inferior infarct, acute Confirmed by Mitesh Araiza ([id number]) on 09/25/2018 6:33:10 PM Referred By: Mitesh Araiza Confirmed By:Mitesh Araiza
[2018-09-25] MEDS ORDERED: GENTAMICIN SULFATE 80 MG/2 ML VIAL ONE ×3 (18:52→19:47)
[2018-09-25] MEDS ORDERED: levETIRAcetam 1000MG/NACL 100 ML IV ONE (19:00)
[2018-09-25] MEDS ORDERED: DEXAMETHASONE 4 MG/ML VIAL ONE ×2 (19:26)
[2018-09-25] MEDS ORDERED: ROCURONIUM 50 MG/5 ML VIAL ONE (19:26)
[2018-09-25] MEDS ORDERED: VASOPRESSIN 20 UNIT/ML VIAL ONE (19:34)
[2018-09-25] MEDS ORDERED: ePHEDrine SULFATE 25 MG/5 ML SYR ONE (19:40)
[2018-09-25] MEDS ORDERED: ONDANSETRON 4 MG/2 ML VIAL IVP PRN ×2 (20:08→21:04)
[2018-09-25] MEDS ORDERED: NALOXONE HCL 0.4 MG/ML INJ IVP PRN (20:08)
[2018-09-25] MEDS ORDERED: fentaNYL 100 MCG/2 ML INJ IVP PRN (20:08)
--- NOTE | 2018-09-25 20:08 | PDANEPAE ---
ANE History of Present Illness Emergent Crani for Subdural ANE Past Medical History - Cardiovascular History Hx Hypertension: Yes Hx Arrhythmias: Yes Hx Chest Pain: No Hx Coronary Artery / Peripheral Vascular Disease: Yes Hx CHF / Valvular Disease: Yes Hx Palpitations: No - Pulmonary History Hx COPD: No Hx Asthma/Reactive Airway Disease: No Hx Recent Upper Respiratory Infection: No Hx Oxygen in Use at Home: No Hx Sleep Apnea: Yes - Endocrine History Hx Diabetes: No - Renal History Hx Renal Disorders: No - Liver History Hx Hepatic Disorders: No - Chronic Pain History Chronic Pain: Yes ANE Review of Systems Review of Systems: ANE Patient History - Allergies Allergies/Adverse Reactions: No Known Allergies Allergy (Verified 09/25/18 18:01) - Home Medications Home Medications: Cholecalciferol Vit D3 [Vitamin D3 (*)] 1,000 units PO DAILY 12/09/16 [Last Taken Unknown] Cyanocobalamin [Vitamin B12 (*)] 1,000 mcg PO DAILY 12/09/16 [Last Taken Unknown ] Dabigatran Etexilate Mesyl [Pradaxa 150 MG (*)] 150 mg PO BID 12/09/16 [Last Taken 12/08/16 21:00] Finasteride [Propecia] 1 mg PO HS 12/09/16 [Last Taken 12/08/16] Lisinopril [Zestril 5 mg (*)] 5 mg PO DAILY 12/09/16 [Last Taken 12/09/16] Nebivolol HCl [Bystolic 5 mg (*)] 5 mg PO DAILY 12/09/16 [Last Taken 12/08/16] lamoTRIgine [LamICTAL XR] 75 mg PO HS 12/09/16 [Last Taken 12/08/16] Pradaxa 08/31/18 [Last Taken 08/31/18 07:00] - Smoking Hx Smoking Status: Never smoked - Alcohol Use Alcohol Use: Sober ANE Labs/Vital Signs - Labs Result Diagrams: 09/25/18 18:00 09/25/18 18:00 - Vital Signs Blood Pressure: 131/87 Heart Rate: 98 Respiratory Rate: 20 O2 Sat (%): 100 Weight: 72.575 kg ANE Physical Exam - Airway Mouth exam: ETT in situ - Pulmonary Pulmonary: clear to auscultation - Cardiovascular Cardiovascular: regular rate and rhythym - ASA Status ASA Status: IV, E ANE Anesthesia Plan Anesthesia Plan: general endotracheal anesthesia (Emergent Crani for Subdural) Urgent/Emergent Case: Anes eval completed preop but documented later for safe timely pt care
--- NOTE | 2018-09-25 20:20 | POSTOPPROG ---
Post Op Note Date of Operation: 09/25/18 Surgeon: Benedict Christopher Barrel Rifler Button: govind adler Anesthesia: GET(General Endotracheal) Pre-op Diagnosis: large acute left SDH with herniation Post-op Diagnosis: same Indication: herniation of the brain Procedure: Left hemicraniotomy for evacuation of SDH Findings: brain looked reasonably healthy but wasn't pulsatile Inf/Abcess present in the surg proc area at time of surgery?: No EBL: 50-100 Total fluids administered: per anesthesia Complications: none Drains: Cal Flannery (to suction in subgaleal space)
[2018-09-25] MEDS ORDERED: BISACODYL 10 MG SUPP PR PRN (21:04)
[2018-09-25] MEDS ORDERED: ACETAMINOPHEN 325 MG TAB PO PRN (21:04)
[2018-09-25] MEDS ORDERED: LACTULOSE 20 GM/30 ML UDCUP PO PRN (21:04)
[2018-09-25] MEDS ORDERED: ONDANSETRON DISINTEGRATING 4 MG TAB PO PRN (21:04)
[2018-09-25] MEDS ORDERED: POLYETHYLENE GLYCOL 3350 17 GM PKT PO PRN (21:04)
[2018-09-25] MEDS ORDERED: MAGNESIUM HYDROXIDE 30 ML UDCUP PO PRN (21:04)
[2018-09-25] MEDS ORDERED: niCARdipine/NACL 200 ML IV PRN (21:04)
[2018-09-25] MEDS ORDERED: PROMETHAZINE HCL 25 MG/ML INJ IVP PRN (21:04)
[2018-09-25] MEDS ORDERED: HYDROCODONE/APAP 10/325 TAB PO PRN (21:04)
--- NOTE | 2018-09-25 21:04 | POSTANESTH ---
Post Anesthetic Evaluation Cardiovascular Status: Tx Hyper/Hypo-tension Respiratory Status: Requires Airway Assist Level of Consciousness/Mental Status: Unconscious Complications Possibly Related to Anesthesia: None Noted (maintain intubated overnight)
[2018-09-25] MEDS ORDERED: fentaNYL/NACL 100 ML IV SCH (21:20)
[2018-09-25] MEDS ORDERED: ALBUMIN 5% 500 ML IV ONE (23:00)
[2018-09-25] MEDS: NS W/ 20 KCl/L 1,000 ML IV SCH (23:19)
[2018-09-25] MEDS ORDERED: ALBUMIN 5% 500 ML IV PRN (23:30)
[2018-09-25] MEDS ORDERED: THROMBIN (BOVINE) 5,000 UNIT VIAL TP ONE (23:55)
[2018-09-26] MEDS: PROPOFOL/EMULSION 100 ML IV SCH ×2 (04:42→16:53)
[2018-09-26 04:43] LABS: PLATELET COUNT 265 10^3/uL (150-400)
[2018-09-26 05:00] LABS: INR 1.17 (0.83-1.16); PROTIME(PATIENT) 15.1 SEC (12.0-15.0)
[2018-09-26] MEDS: NS W/ 20 KCl/L 1,000 ML IV SCH ×2 (07:44→18:15)
[2018-09-26] MEDS ORDERED: LACTULOSE 20 GM/30 ML UDCUP TUBE PRN (08:00)
[2018-09-26] MEDS ORDERED: POLYETHYLENE GLYCOL 3350 17 GM PKT TUBE PRN (08:00)
[2018-09-26] MEDS ORDERED: MAGNESIUM HYDROXIDE 30 ML UDCUP TUBE PRN (08:00)
[2018-09-26] MEDS: levETIRAcetam 750 MG in NS 100 ML IV SCH ×2 (08:19→20:57)
[2018-09-26] MEDS: SENNOSIDES 17.6 MG/10 ML UDL TUBE SCH ×3 (09:43→20:57)
--- NOTE | 2018-09-26 09:54 | NEUSURGPN ---
Assessment/Plan: A: 73 yo male POD #1 sp left frontal craniotomy for evacuation of subdural hematoma causing significant brain compression. P: -Neuro: This morning- moves all extremities to painful stimuli and stimulation, but does not open eyes or follow commands -Continue sedation vacations to try and get better neuro exam -Continue subgaleal KATIE to full suction -SBP <140 -Postop CT shows some improvement in brain compression but overall the brain did not expand very much. -Continue q1 hour neuro checks -Appreciate critical care following - flying in later today, told RN Nancy that Dr. Christopher could speak with her over the phone or would be there tomorrow morning talk to in person - Discussed with Dr. Christopher S: Chart reviewed. Intubated O: Intubated, sedated PERR- sluggish but reactive Does not open eyes to pain DOes not follow commands MINA X4 to painful stimuli and to oral care Head wrap in place, clean KATIE X1- to full suction, output ~400 overnight. Catheter Insertion Date: 09/25/18 - Physician Discussed Patient with : Candi Neurosurgery Physical Exam - Vitals, I&O, Labs I and O 09/25/18 09/26/18 09/27/18 05:59 05:59 05:59 Intake Total 2278 Output Total 1070 Balance 1208 Weight 79.8 kg Intake: IV Intake (ml) 831 IV Infused (ml) 1447 Albumin 5% 500 ml @ As 1000 Directed IV ONCE ONE Rx#: [id number] Propofol/Emulsion 100 ml 110 @ Per Protocol IV CONT BUNNY Rx#:[id number] fentaNYL 1,000 mcg In Ns 37 100 ml @ Per Protocol IV CONT BUNNY Rx#:[id number] Output: Urine (ml) 600 Catheter 400 KATIE Drain Output (ml) 470 Head 470 Vital Signs Temp Pulse Resp BP Pulse Ox 37.0 C 68 15 98/44 L 100 09/26/18 09:00 09/26/18 09:00 09/26/18 09:00 09/26/18 09:00 09/26/18 09:00 Laboratory Results 09/26/18 04:20 09/26/18 04:20 ICD10 Worksheet Patient Problems: Problems Problem Status Onset Acute cerebral hemorrhage Acute Acute coronary syndrome Acute Chronic Disease Mgmt/Transitional Care Acute
[2018-09-26] MEDS ORDERED: ALBUMIN 5% 250 ML IV ONE (10:00)
--- NOTE | 2018-09-26 11:04 | GCON ---
[f rep st] CONSULTATION PULMONARY CRITICAL CARE CONSULTATION DATE OF CONSULTATION: 09/26/2018 REASON FOR CONSULTATION: Subdural hematoma, status post craniotomy and evacuation, respiratory failu re. HISTORY: The patient is a 73-year-old gentleman who was anticoagulated with Pradaxa and Plavix. He presented to the emergency department the day prior to his admission, having fallen and struck his he ad. He was evaluated in the emergency department. CT scan showed no evidence of a subdural hematoma . He had no other intracranial pathology. He had a scalp laceration and associated superficial agatha estevan. Bleeding was controlled and he was admitted overnight to Trauma Surgery for observation in [facility] ht of his age and medical problems. He did well and was discharged yesterday morning. He may have f rosi again. Last evening while heading out to dinner, he had the acute onset of nausea and vomiting , followed by altered mental status. He was brought back to the emergency department where CT scan o f the head showed a large left-sided subdural hematoma. He was seen by Neurosurgery, taken immediate ly to the operating room, and evacuation of the hematoma was performed. He was returned to the [facility] care unit in stable condition on the ventilator. Blood pressure was initially quite high and he required a nicardipine drip. He is currently off this as blood pressures have come down with propof ol and fentanyl. He is currently unresponsive on the ventilator. PAST MEDICAL HISTORY: Remarkable for aortic valve replacement and a maze procedure. He also has kno wn coronary artery disease. He was anticoagulated with Pradaxa and Plavix for these reasons. Other problems, include systemic hypertension, prostatism, and hyperlipidemia. MEDICATIONS: On admission, included Lamictal, p.r.n. nitroglycerin, Bystolic, lisinopril, finasterid e, Pradaxa, clopidogrel, atorvastatin. SURGICAL HISTORY: Aortic valve replacement, maze procedure, appendectomy, and hernia repair. ALLERGIES: No known drug allergies. SOCIAL HISTORY: The patient lives with his . His currently is out of town and is coming [facility] in today. Tobacco and significant alcohol are apparently negative. He does have family in the [facility]. FAMILY HISTORY: Unobtainable. REVIEW OF SYSTEMS: Unobtainable. PHYSICAL EXAMINATION: GENERAL: Reveals an elderly gentleman who is on the ventilator. He appears c omfortable. VITAL SIGNS: Current blood pressure is 98/42, respiratory rate 16. He is on 40% FiO2 w ith saturations of 100. He is afebrile. HEENT: Remarkable for a drain in place and for a large rodrigo ssing over the head for his craniotomy. Pupils appear equal and reactive. An endotracheal tube and orogastric tube to suction are in place. NECK: Unremarkable for lymphadenopathy or obvious thyromeg tariq. There is no jugular venous distention. He has no central line. An ART line is in place. CHES T: Clear anteriorly. Breath sounds are somewhat diminished at the bases. There are no central rhon chi. He does have oral secretions from his hi-lo tube. HEART: Regular in rate and rhythm. A systo lic murmur is present. The aortic valve sounds fine. ABDOMEN: Soft. Tenderness is difficult to as sess, likely negative. Bowel sounds are diminished, but present. : A Bird catheter is in place. He has good urine output. EXTREMITIES: Unremarkable for significant edema. NEUROLOGIC: Examinat ion is difficult to assess. Per nursing, he has been moving all extremities occasionally. He is sed ated currently. DATABASE: Followup head CT report is pending. A subdural hematoma again persists. There is some pn eumocephalus and persistent left to right shift with some compression of the ventricle on the left. This is my reading. Chest x-ray shows lines and tubes to be in good position. There is some basilar atelectasis or infil trate, left greater than right, new since his initial x-ray. LABORATORY: Arterial blood gas shows pH 7.42, pCO2 34, and pO2 of 113 on 40% FiO2, a set rate of 12 and a tidal volume of 450. He is on 4 of PEEP. White blood cell count is 17,300, hematocrit 22.6, d own from 42 on admission, platelets are 265,000. PT is 15.1, INR of 1.17, PTT 25. Sodium 137, potas sium 4.3, CO2 20, BUN 16, creatinine 0.9, glucose 155, calcium 7.7. Liver function studies are aracely l. Albumin is 2.8. ASSESSMENT: 1. Subdural hematoma. The patient presented with altered mental status and a large subdural hematom a. He is status post evacuation. He was on anticoagulation with Pradaxa and Plavix. He received Pr axBind and 10 units of platelets. He is doing well postoperatively. The CT scan of the head by my r conchita does show a persistent subdural hematoma. He is being followed closely by Neurosurgery. 2. Acute respiratory failure, secondary to subdural hematoma. The patient has no history of underly ing lung disease known to me or reported in his chart. He is currently doing well on the ventilator on 40%, but mental status may preclude early extubation. He is currently sedated with propofol and f entanyl per ventilatory protocols. Sedation vacation will be initiated so we can better assess his m ental status at this point. CPAP weaning will be considered when indicated. 3. Acute blood loss anemia. Hemoglobin is 7.3, hematocrit 22.6, the latter down from 38 on admissio n. Hemoglobin and hematocrit will be followed. I anticipate he will need blood. 4. History of heart disease. Status post aortic valve replacement, presumably coronary artery bypas s graft and maze procedure. He is currently off anticoagulation and anti-platelet agents. 5. Hypotension. Blood pressures are currently borderline, with mean arterial pressures in the low 6 0s. He did respond to albumin earlier and was initially hypertensive. Blood pressure will be follow ed and addressed appropriately. 5% albumin will again be given. Intravenous fluids will be continue d. 6. History of hypertension, hyperlipidemia, etc. As outlined above. PLAN/RECOMMENDATIONS: Patient will be kept on the ventilator with appropriate adjustment as needed. A sedation vacation will be initiated this morning to better assess his mental status and timing of initiation of CPAP trials. Appropriate sedation and pain control will, otherwise, be maintained. Ap propriate blood pressure control will be maintained. Keppra will be continued. H and H, laboratory, CBC, blood gas, and x-ray will all be followed. Further plans and recommendations will be made based on his progress over the next 12 to 24 hours. 1 hour of critical care time was spent directly with the patient initially managing issues as outline d above. PROGNOSIS: Unclear at this time based on the severity of his subdural hematoma and possible brain in jury? /[id number]/MODL
--- NOTE | 2018-09-26 11:39 | PDMN ---
Medical Necessity Medical necessity: Pt meets IP criteria as of 09/25/2018 per and [facility] S-[id number] ( Craniotomy for Traumatic brain Injury or intracerebral hemorrhage); los > 2 mn for management s/p L craniotomy d/t subdural hematoma s/p fall on chronic anticoagulation.
--- NOTE | 2018-09-26 15:54 | GHP ---
[f rep st] HISTORY AND PHYSICAL DATE OF ADMISSION: 09/25/2018 CHIEF COMPLAINT: Acute left-sided subdural hematoma. HISTORY OF PRESENT ILLNESS: The patient is a 73-year-old male who is on Pradaxa and Plavix for histo ry of a bioprosthetic aortic valve repair with atrial fibrillation and coronary artery disease. A da y prior to the current presentation, he fell on his head. He was seen in the ED with a negative head CT in terms of intracranial findings, but he did have a large scalp hematoma. [facility]. He was discharged this morning actually and then his daughter found him recently and he was co mplaining of severe headaches. They were planning to go to dinner, but she had to pull the car over so that he could vomit. He then became sleepy and complained of worse headache, and he was brought [facility] into emergency department. They had to help him out of the car as he was unable to do so on his own reconnaissance. Repeat head CT was performed and he was found to have a very large acute left-si ded subdural with significant midline shift, and was found to be in a concerning neurologic state in the emergency room where I saw him personally approximately 15 minutes after being called by Dr. Tatyana duarte. I told his daughter that he needed to be taken to the operating room for evacuation in order to save his life and she was on board with this plan. He was given reversal agents for his anticoagula nt and antiplatelets. PAST MEDICAL AND SURGICAL HISTORY: Per HPI. Ablations for atrial fibrillation. CODE STATUS: Full. ALLERGIES: None. SOCIAL HISTORY: Never smoked. Does not use alcohol or drugs according to his family. FAMILY HISTORY: Daughter does not have extensive family history information. REVIEW OF SYSTEMS: Unable to obtain given the patient's comatose state. PHYSICAL EXAM: VITALS: Afebrile at 36.6 Celsius, heart rate 107, blood pressure 232/149, respirator y rate 20, saturating 96% after being intubated in the ED. NEUROLOGIC: The patient has a GCS of 6. He does not open his eyes to pain or voice. He is intubated. He withdraws all extremities. Pupils are equal and reactive and he has intact brainstem reflexes. LABS: White blood cell count 11.8, hemoglobin 12.4, platelets 393. Sodium 138, potassium 4.3, BUN 1 5, creatinine 1.0, glucose 137. IMAGING: I have read the patient's noncontrast head CT from today and yesterday and agree has signif icant development of a large whole hemispheric left-sided subdural hematoma that is acute and is caus ing significant brain compression, midline shift and concerns for uncal herniation. IMPRESSION AND PLAN: A 73-year-old male who I am admitting to my service, but I am taking him emerge ntly to the OR for a left hemicraniectomy and subdural hematoma evacuation due to his history of anti coagulation and anti-platelet use who re-presented with a large hematoma after being admitted yesterd ay after head trauma and observation without significant findings on his scan. He is in poor neurolo gic state with a GCS of 6T. The daughter has authorized my emergent operation and we are proceeding immediately. Dr. Araiza is present and the anesthesia team and surgical team are present to get the patient speedily to the operating room. We will proceed as soon as possible to give him the best po ssible outcome. His family does know that his chances of a good outcome are low given the size of th e hemorrhage and his current neurologic state, but they would like to still attempt to save his life. /[id number]/MODL
--- NOTE | 2018-09-26 21:33 | ASMTCMCOM ---
CM Note CM Note Notes: Reviewed chart, spoke with Dr. Kirk. Pt admitted for nausea, vomiting. Pt is s/p two recent falls; on Thursday09/24/18 the pt hit his head. He presented to the Emergency Department d/t risk of bleeding secondary to Pradaxa. Pt was admitted for observation and was discharged on Monday 09/25. The pt returned the Emergency Department Thursday evening after an episode of nausea, vomiting and drowsiness. Pt was found to have a subdural hematoma. He is s/p surgery. History includes a valve repair, afib and CAD. Pt is and lives with his spouse in a two-story home on some property in [place]. Pt has two children who are involved in his care. Discharge needs remain unclear. Will need to await PT/OT evals. CM will continue to follow. Discharge Plan: To be determined Date Signed: 09/26/2018 09:32 PM Electronically Signed By:Zoë Nieto RN
[2018-09-26] MEDS: PETROLAT,WHT/MIN OIL/SOD CHL 3.5 GM OPHT.OINT EACHEYE PRN (22:22)
[2018-09-27] MEDS: NS W/ 20 KCl/L 1,000 ML IV SCH (04:15)
[2018-09-27 04:42] LABS: PLATELET COUNT 206 10^3/uL (150-400)
[2018-09-27 04:47] LABS: INR 1.19 (0.83-1.16); PROTIME(PATIENT) 15.3 SEC (12.0-15.0)
[2018-09-27] MEDS: PETROLAT,WHT/MIN OIL/SOD CHL 3.5 GM OPHT.OINT EACHEYE PRN (04:50)
--- NOTE | 2018-09-27 07:59 | NEUSURGPN ---
Assessment/Plan: A: 73 yo male POD #2 sp left frontal craniotomy for evacuation of subdural hematoma causing significant brain compression. P: -Neuro: This morning- moves all extremities to painful stimuli and stimulation, but does not open eyes or follow commands. Little improvement from yesterday -Wean to extubate as able -Continue sedation vacations to try and get better neuro exam -Continue subgaleal KATIE to full suction- may remove later today -SBP <140 -Postop CT shows some improvement in brain compression but overall the brain did not expand very much. -Continue q1 hour neuro checks -Appreciate critical care following - Discussed with Dr. Christopher S: Chart reviewed. Intubated O: Intubated, sedated PERR- sluggish but reactive, Does not open eyes to pain DOes not follow commands MINA X4 to painful stimuli and to oral care Head wrap in place, clean KATIE X1- to full suction, output ~60 overnight Catheter Insertion Date: 09/25/18 - Physician Discussed Patient with : Candi Neurosurgery Physical Exam - Vitals, I&O, Labs I and O 09/26/18 09/27/18 09/28/18 05:59 05:59 05:59 Intake Total 1978 3463 Output Total 870 1370 Balance 1108 2093 Weight 79.8 kg 75.2 kg Intake: IV Intake (ml) 831 2720 IV Infused (ml) 1147 443 Albumin 5% 250 ml @ As 250 Directed IV ONCE ONE Rx#: [id number] Albumin 5% 500 ml @ As 1000 Directed IV ONCE ONE Rx#: [id number] Propofol/Emulsion 100 ml 110 90 @ Per Protocol IV CONT BUNNY Rx#:[id number] fentaNYL 1,000 mcg In Ns 37 103 100 ml @ Per Protocol IV CONT BUNNY Rx#:[id number] Packed Red Blood Cells ( 300 ml) Output: Urine (ml) 400 950 Catheter 400 950 OG Tube Output (ml) 300 Large Bore (>12 Greek) 300 Non-weighted KATIE Drain Output (ml) 470 120 Head 470 120 Other: Number of Stools Catheter 0 Vital Signs Temp Pulse Resp BP Pulse Ox 36.3 C 53 L 24 H 130/57 H 100 09/27/18 07:00 09/27/18 07:00 09/27/18 07:00 09/27/18 07:00 09/27/18 07:00 Laboratory Results 09/27/18 04:15 09/27/18 04:15 ICD10 Worksheet Patient Problems: Problems Problem Status Onset Acute cerebral hemorrhage Acute Acute coronary syndrome Acute Chronic Disease Mgmt/Transitional Care Acute
[2018-09-27] MEDS ORDERED: ACETAMINOPHEN 325 MG TAB TUBE PRN (08:00)
[2018-09-27] MEDS ORDERED: HYDROCODONE/APAP 10/325 TAB TUBE PRN (08:00)
--- NOTE | 2018-09-27 08:31 | PDINTPN ---
Irrigation Specialist Progress Note Assessment/Plan: Assessment/plan: * Subdural hematoma-status post evacuation. He was on chronic anticoagulation with Pradaxa and Plavix. -per Neurosurgery * Mental status-still in coma. Not arousable * Basilar atelectasis * Acute respiratory failure secondary to subdural hematoma and atelectasis. On ventilator protocol. -currently stable on mechanical ventilation -did well on CPAP trial. Unable to perform weaning parameters. -not ready for extubation at this time * Sedation-currently on propofol and fentanyl. -continue for now * History of aortic valve replacement * History of coronary artery disease with coronary artery bypass graft * Shock-resolved * History of hypertension and hyperlipidemia * Acute blood-loss anemia-improved * Nutrition-none at this time * VTE prophylaxis-on SCDs. No anticoagulation for now. Subjective: Coma Objective: Vital Signs Temp Pulse Resp BP Pulse Ox 36.3 C 53 L 24 H 130/57 H 100 09/27/18 07:00 09/27/18 07:00 09/27/18 07:00 09/27/18 07:00 09/27/18 07:00 Laboratory Results 09/27/18 04:15 09/27/18 04:15 09/26/18 09/27/18 09/28/18 05:59 05:59 05:59 Intake Total 1978 3463 Output Total 870 1370 Balance 1108 2093 PT 15.3 SEC (12.0-15.0) H 09/27/18 04:15 INR 1.19 (0.83-1.16) H 09/27/18 04:15 Laboratory Results 09/27/18 04:15 09/27/18 04:15 09/27/18 09/27/18 09/27/18 04:15 04:15 04:15 PT 15.3 SEC H SEC (12.0 - 15.0) INR 1.19 H (0.83 - 1.16) Patient Temperature 35.5 DEGREES DEGREES pCO2 36 mmHg mmHg (34 - 38) pO2 114 mmHg H mmHg (65 - 75) Total CO2 24 mEq/L mEq/L (23 - 27) ABG pH 7.40 (7.35 - 7.45) ABG PO2/FiO2 Ratio 285 RATIO RATIO ABG HCO3 23 mEq/L mEq/L (22 - 26) ABG O2 Saturation 99 % H % (92 - 95) ABG Base Excess -1.8 mEq/L mEq/L (-2.5 - 2.5) O2 Concentration % 40 % % Set Respiration Rate 12 SIMV YES Tidal Volume 40 PEEP 5 Peak Inspir Pressure 14 Calcium 8.1 mg/dL L mg/dL (8.5 - 10.4) Magnesium 2.0 mg/dL mg/dL (1.6 - 2.3) Total Bilirubin 0.9 mg/dL mg/dL (0.1 - 1.4) AST 39 IU/L IU/L (17 - 59) ALT 27 IU/L IU/L (21 - 72) Alkaline Phosphatase 46 IU/L IU/L (38 - 126) Total Protein 4.2 g/dL L g/dL (6.3 - 8.2) Albumin 2.5 g/dL L g/dL (3.5 - 5.0) Chest [id number] by myself. Endotracheal tube in good position. Sternal wires are present. There is cardiomegaly pleasant. Evidence of fluid overload was present. There is atelectasis in the bases. - Time Spent With Patient Time Spent With Patient: Case discussed with Nursing and Respiratory therapy. 45 min of critical care time spent with patient. Physical Exam - Physical Exam General Appearance: obtunded, other, No alert EENT: ET tube Neck: non-tender Respiratory: crackles (Few bibasilar), No respiratory distress, No wheezing Cardiac/Chest: normal peripheral pulses, regular rate, rhythm, systolic murmur Abdomen: normal bowel sounds, non-tender, soft Male Genitalia: deferred Rectal: deferred Skin: normal color, warm/dry Extremities: normal range of motion, non-tender, normal inspection, normal capillary refill Neuro/Psych: No alert (Coma) ICD10 Worksheet Patient Problems: Problems Problem Status Onset Acute cerebral hemorrhage Acute Acute coronary syndrome Acute Chronic Disease Mgmt/Transitional Care Acute
[2018-09-27] MEDS: levETIRAcetam 750 MG in NS 100 ML IV SCH ×2 (08:58→20:33)
[2018-09-27] MEDS: ATORVASTATIN CALCIUM 40 MG TAB TUBE SCH (08:59)
[2018-09-27] MEDS: SENNOSIDES 17.6 MG/10 ML UDL TUBE SCH ×2 (09:00→20:33)
[2018-09-27] MEDS ORDERED: FAMOTIDINE 20 MG in NS 100 ML IV SCH (09:00)
[2018-09-27] MEDS ORDERED: NEBIVOLOL HCL 5 MG TAB PO SCH (09:00)
[2018-09-27] MEDS: FAMOTIDINE 20 MG TAB TUBE SCH ×2 (09:00→20:25)
[2018-09-27] MEDS: NS 1,000 ML IV SCH (10:27)
[2018-09-27] MEDS: CHLORHEXIDINE GLUCONATE 15 ML UDL PO SCH ×2 (10:51→20:25)
[2018-09-27] MEDS: PROPOFOL/EMULSION 100 ML IV SCH (18:03)
[2018-09-27] MEDS: EZETIMIBE 10 MG TAB TUBE SCH (20:25)
[2018-09-27] MEDS: Finasteride [Propecia] 1 MG PO SCH (20:33)
[2018-09-27] MEDS: LISINOPRIL 20 MG TAB TUBE SCH (20:34)
[2018-09-28] MEDS: NS 1,000 ML IV SCH (02:50)
[2018-09-28] MEDS: PETROLAT,WHT/MIN OIL/SOD CHL 3.5 GM OPHT.OINT EACHEYE PRN (05:19)
--- NOTE | 2018-09-28 06:52 | NEUSURGPN ---
Date of Surgery: 09/25/18 Post Op Day: 3 Assessment/Plan: Assessment: 73 yo male POD #3 s/p left frontal craniotomy for evacuation of subdural hematoma causing significant brain compression Plan: -neuro: moves all extremities to painful stimuli, does not open eyes or follow commands. Stable exam per reports from prior note and RN this am -wean to extubate if able -off sedation since 0300 -continue subgaleal KATIE to full suction- may remove later today if ok with Dr Christopher -SBP <140 -postop CT shows some improvement in brain compression but overall the brain did not expand much -continue q1 hour neuro checks -appreciate critical care following -discussed with Dr. Christopher -call with any questions or concerns Subjective: No new events per RN. Stable exam. Chart reviewed Objective: Intubated PERR- sluggish but reactive Does not open eyes to pain Does not follow commands MINA X4 to painful stimuli and to oral care Head wrap in place, clean KATIE X 1- to full suction, output 70/last 24 hrs Neuro Check Frequency: q 1 hr Urinary Catheter in Place: Yes Urinary Catheter Indication: Surgical Requirement Catheter Insertion Date: 09/25/18 - Physician Discussed Patient with : Candi Neurosurgery Physical Exam - Vitals, I&O, Labs I and O 09/27/18 09/28/18 09/29/18 05:59 05:59 05:59 Intake Total 3463 2135 Output Total 1370 1070 Balance 2093 1065 Weight 75.2 kg Intake: IV Intake (ml) 2720 IV Infused (ml) 443 1758 Albumin 5% 250 ml @ As 250 Directed IV ONCE ONE Rx#: [id number] Ns 1,000 ml @ 50 mls/hr 1652 IV CONT BUNNY Rx#: [id number] Propofol/Emulsion 100 ml 90 47 @ Per Protocol IV CONT BUNNY Rx#:[id number] fentaNYL 1,000 mcg In Ns 103 59 100 ml @ Per Protocol IV CONT BUNNY Rx#:[id number] Tube Feeding (ml) 227 Tube Flush (ml) 150 Packed Red Blood Cells ( 300 ml) Output: Urine (ml) 950 975 Catheter 950 975 OG Tube Output (ml) 300 25 Large Bore (>12 Turkmen) 300 25 Non-weighted KATIE Drain Output (ml) 120 70 Head 120 70 Other: Number of Stools Catheter 0 0 Vital Signs Temp Pulse Resp BP Pulse Ox 35.1 C L 55 L 15 98/50 L 100 09/28/18 06:00 09/28/18 06:00 09/28/18 06:00 09/28/18 06:00 09/28/18 06:00 Laboratory Results 09/27/18 04:15 09/27/18 04:15 ICD10 Worksheet Patient Problems: Problems Problem Status Onset Acute cerebral hemorrhage Acute Acute coronary syndrome Acute Chronic Disease [facility]/Transitional Care Acute
--- NOTE | 2018-09-28 08:23 | PDINTPN ---
Retread Builder Progress Note Assessment/Plan: Assessment/plan: * Subdural hematoma-status post evacuation. He was on chronic anticoagulation with Pradaxa and Plavix. -per Neurosurgery * Mental status-no improvement, despite being off propofol. Coma * Basilar atelectasis * Acute respiratory failure secondary to subdural hematoma and atelectasis. On ventilator protocol. -currently stable on mechanical ventilation -did well on CPAP trial. Unable to perform weaning parameters. -not ready for extubation at this time * Sedation-off * History of aortic valve replacement * History of coronary artery disease with coronary artery bypass graft * Shock-resolved * History of hypertension and hyperlipidemia * Acute blood-loss anemia-improved * Nutrition-none at this time * VTE prophylaxis-on SCDs. No anticoagulation for now. * Prognosis-Grim Subjective: Coma Objective: Vital Signs Temp Pulse Resp BP Pulse Ox 35.5 C L 59 L 14 96/46 L 97 09/28/18 07:00 09/28/18 07:00 09/28/18 07:00 09/28/18 07:00 09/28/18 07:00 Laboratory Results 09/27/18 04:15 09/27/18 04:15 09/27/18 09/28/18 09/29/18 05:59 05:59 05:59 Intake Total 3463 2135 Output Total 1370 1070 Balance 2093 1065 PT 15.3 SEC (12.0-15.0) H 09/27/18 04:15 INR 1.19 (0.83-1.16) H 09/27/18 04:15 - Time Spent With Patient Time Spent With Patient: 35 min of critical care time spent with patient. Case discussed with Nursing and Respiratory therapy Physical Exam - Physical Exam General Appearance: obtunded, No alert EENT: PERRL/EOMI, ET tube Neck: non-tender Respiratory: crackles (Few bibasilar), No respiratory distress, No wheezing Cardiac/Chest: normal peripheral pulses, regular rate, rhythm, systolic murmur Peripheral Pulses: 2+: carotid (R), carotid (L), femoral (R), femoral (L), dorsalis-pedis (R), dorsalis-pedis (L) Abdomen: normal bowel sounds, non-tender, soft Male Genitalia: deferred Rectal: deferred Skin: normal color, warm/dry Extremities: normal range of motion, non-tender, normal inspection, normal capillary refill Neuro/Psych: other (Coma), No alert ICD10 Worksheet Patient Problems: Problems Problem Status Onset Acute cerebral hemorrhage Acute Acute coronary syndrome Acute Chronic Disease Mgmt/Transitional Care Acute
[2018-09-28] MEDS: ATORVASTATIN CALCIUM 40 MG TAB TUBE SCH (08:45)
[2018-09-28] MEDS: SENNOSIDES 17.6 MG/10 ML UDL TUBE SCH ×2 (08:45→20:58)
[2018-09-28] MEDS: CHLORHEXIDINE GLUCONATE 15 ML UDL PO SCH ×2 (08:46→20:50)
[2018-09-28] MEDS: FAMOTIDINE 20 MG TAB TUBE SCH ×2 (08:46→20:57)
[2018-09-28] MEDS ORDERED: AMIODARONE HCL 200 MG TAB TUBE SCH (09:00)
--- NOTE | 2018-09-28 09:45 | ASMTCMCOM ---
CM Note CM Note Notes: Pt's at bedside, offered support, says she is in good hands and says she is getting her questions and concerns answered. Spiritual Care has been following. Plan: TBD. Date Signed: 09/28/2018 09:44 AM Electronically Signed By:MANDY lÁvarez
[2018-09-28] MEDS ORDERED: ONDANSETRON DISINTEGRATING 4 MG TAB TUBE PRN (11:30)
[2018-09-28] MEDS ORDERED: BUPIVACAINE 0.25% 30 ML SDV ONE (11:45)
[2018-09-28] MEDS ORDERED: BACITRACIN ZINC 0.5 OZ OINTTUBE TP ONE (11:45)
[2018-09-28] MEDS ORDERED: GENTAMICIN SULFATE 80 MG/2 ML VIAL ONE ×2 (11:46→12:46)
[2018-09-28] MEDS ORDERED: EPINEPHrine 1 MG/ML INJ ONE (11:46)
[2018-09-28] MEDS ORDERED: MANNITOL 20% 100 GM/500 ML BAG IV ONE (11:46)
[2018-09-28] MEDS ORDERED: POVIDONE-IODINE 30 GM OINTTUBE TP ONE (11:47)
[2018-09-28] MEDS ORDERED: HYDROGEN PEROXIDE 236 ML BOTTLE TP ONE (11:47)
[2018-09-28] MEDS ORDERED: SURGIFLO MATRIX KIT WITH THROMBIN 8 ML TP ONE (11:47)
[2018-09-28] MEDS ORDERED: THROMBIN (BOVINE) 5,000 UNIT VIAL TP ONE (12:10)
[2018-09-28] MEDS ORDERED: ROCURONIUM 50 MG/5 ML VIAL ONE ×2 (12:18→13:36)
[2018-09-28] MEDS ORDERED: fentaNYL 100 MCG/2 ML INJ ONE (12:28)
--- NOTE | 2018-09-28 12:32 | PDANEPAE ---
ANE History of Present Illness Crani for epidural. S/P prior crani with decreased response. ANE Past Medical History - Cardiovascular History Hx Hypertension: Yes Hx Arrhythmias: Yes Hx Chest Pain: No Hx Coronary Artery / Peripheral Vascular Disease: Yes Hx CHF / Valvular Disease: Yes Hx Palpitations: No - Pulmonary History Hx COPD: No Hx Asthma/Reactive Airway Disease: No Hx Recent Upper Respiratory Infection: No Hx Oxygen in Use at Home: No Hx Sleep Apnea: No - Endocrine History Hx Diabetes: No - Renal History Hx Renal Disorders: No - Liver History Hx Hepatic Disorders: No - Chronic Pain History Chronic Pain: Yes ANE Review of Systems Review of Systems: ANE Patient History - Allergies Allergies/Adverse Reactions: No Known Allergies Allergy (Verified 09/25/18 18:01) - Home Medications Home medications: home medication list seen and reviewed Home Medications: Dabigatran Etexilate Mesyl [Pradaxa 150 MG (*)] 150 mg PO BID 12/09/16 [Last Taken 09/25/18] Finasteride [Propecia] 1 mg PO HS 12/09/16 [Last Taken 09/24/18] Nebivolol HCl [Bystolic 5 mg (*)] 5 mg PO DAILY 12/09/16 [Last Taken 09/25/18] Ascorbic Acid [Vitamin C 500 mg (*)] 1,000 mg PO DAILY 09/26/18 [Last Taken Unknown] Aspirin EC [Aspirin EC 81 mg (*)] 81 mg PO DAILY 09/26/18 [Last Taken 09/25/18] Cholecalciferol Vit D3 [Vitamin D3 2000 units tab (OTC)] 5,000 units PO DAILY [Last Taken Unknown] Ezetimibe [Zetia 10 MG (*)] 10 mg PO HS 09/26/18 [Last Taken 09/24/18] Herbals/Supplements -Info Only 1 ea PO AD 09/26/18 [Last Taken Unknown] Lisinopril [Zestril 20 mg (*)] 20 mg PO HS 09/26/18 [Last Taken 09/24/18] Multivitamins [Multivitamin (*)] 1 each PO DAILY 09/26/18 [Last Taken 09/25/18] Nitroglycerin [Nitrostat 0.4 mg (*)] 0.4 mg SL PRN PRN 09/26/18 [Last Taken Unknown] lamoTRIgine [Lamotrigine ER] 100 mg PO HS 09/26/18 [Last Taken 09/24/18] lamoTRIgine [Lamotrigine] 25 mg PO HS 09/26/18 [Last Taken 09/24/18] - Anes Hx Anes Hx: no prior problems - Smoking Hx Smoking Status: Never smoked - Alcohol Use Alcohol Use: Sober ANE Labs/Vital Signs - Labs Result Diagrams: 09/27/18 04:15 09/27/18 04:15 - Vital Signs Blood Pressure: 94/44 Heart Rate: 58 Respiratory Rate: 17 O2 Sat (%): 99 Height: 165.1 cm Weight: 75.2 kg ANE Physical Exam - Airway Mouth exam: ETT in situ - Pulmonary Pulmonary: no rales or rhonchi - Cardiovascular Cardiovascular: regular rate and rhythym (irregular) - ASA Status ASA Status: V, E ANE Anesthesia Plan Anesthesia Plan: general endotracheal anesthesia (ET and a-line in situ )
[2018-09-28] MEDS ORDERED: PHENYLEPHRINE HCL 100 MCG/ML SYR ONE (12:35)
[2018-09-28] MEDS ORDERED: ceFAZolin 1 GM VIAL ONE ×2 (12:41)
[2018-09-28] MEDS ORDERED: NALOXONE HCL 0.4 MG/ML INJ IVP PRN (12:58)
[2018-09-28] MEDS ORDERED: PROPOFOL/EMULSION 50 ML IV SCH (13:30)
--- NOTE | 2018-09-28 13:51 | POSTANESTH ---
Post Anesthetic Evaluation Cardiovascular Status: Similar to Pre-Op Cond Respiratory Status: Similar to Pre-op Cond. (On vent with same settings as pre- op) Level of Consciousness/Mental Status: Other, See Comment (Coma, unresponsive) Pain Control: Adequate, Prn Tx Ordered Nausea/Vomiting Control: Adequate, Prn Tx Ordered Complications Possibly Related to Anesthesia: None Noted
--- NOTE | 2018-09-28 14:25 | POSTOPPROG ---
Post Op Note Date of Operation: 09/28/18 Surgeon: Maria Alejandra Trinidad Reducing Machine Operator: Marly Malloy PA-C Anesthesia: GET(General Endotracheal) Pre-op Diagnosis: subdural Post-op Diagnosis: subdural Procedure: left craniectomy Inf/Abcess present in the surg proc area at time of surgery?: No Depth: Deep Incisional (Fascial) EBL: 50-100 Plan Plan: 73 yo male s/p left craniectomy - neuro checks every hour -KATIE drain subgaleal, maintain compression -Pollock drain is subdural -Maintain SBP < 140 -HOB > 30 degrees -Postop head CT in am
--- NOTE | 2018-09-28 14:44 | GOP ---
[f rep st] OPERATIVE REPORT DATE OF OPERATION: SURGEON: Maria Alejandra Trinidad DO NEUROSURGEON: Maria Alejandra Trinidad DO. CORRECTIONAL COUNSELOR/CASE MANAGER: ELI Redding. PREOPERATIVE DIAGNOSIS: 1. Subdural hematoma. 2. Brain herniation. 3. Bilateral posterior cerebral artery infarcts. POSTOPERATIVE DIAGNOSIS: 1. Subdural hematoma. 2. Brain herniation. 3. Bilateral posterior cerebral artery infarcts. PROCEDURE PERFORMED: Left hemicraniectomy, evacuation of epidural and subdural hematoma. FINDINGS: SPECIMENS: Bone flap to the freezer. ESTIMATED BLOOD LOSS: 30 mL. INDICATIONS: This is a 73-year-old male with a previous craniotomy, evacuation of subdural hematoma and a decline in his neurologic status. He was found to have significant reaccumulation with signific ant shift and bilateral .NET ARCHITECT infarcts. His family elected to move forward with craniectomy. DESCRIPTION OF PROCEDURE: He was identified, consented. Sites were marked. Brought to the operating room and anesthetized under general endotracheal tube anesthesia. A bump was placed under the left sh oulder. Head was placed in a Simon head paper tester. Previous dressing was removed. The previous drain was removed, and august were placed. We then removed the august after the patient prepped and drape d in the usual sterile fashion. Opened the previous incision with a 10 blade, reflecting the scalp fl ap anterior with a scalp roll and fishhooks. We then opened the suture for the temporalis fascia and then using the hand drill removed the cranial fixation plates and reflected the skull flap. We had a large epidural hematoma that was evacuated. We then reflected the dura and evacuated a large subdural hematoma. We then copiously irrigated, evacuating hematoma from the infratemporal space and posterio r until we had it well decompressed. We then copiously irrigated with over a liter of gentamicin-infu sed saline. Trocared a ventricular-type drain out posterior and placed it in the subgaleal space. Rep laced the dura. Placed a layer of [place]-Raji to prevent adherence. Trocared a KATIE-type drain out in the center of the flap and placed it in the subgaleal space. Closed the temporalis fascia with 2-0 Vicryl pop-offs. Closed the galea with 2-0 Vicryl pop-offs. The skin was closed with august, dressed with Xeroform and Telfa. The flap was decompressed, but an attempt was made to perform an EVD measuring fr om Mary point posteriorly 10 cm and lateral 3.5 cm. We prepped an area, anesthetized with 0.5% Giovany boni with epinephrine, made an 11 blade, created a twist-drill craniostomy. Attempted 3 times to plac e the ventricular drain. I believe that I was in on at least 1 of these. However, the pressure in the head is so low at this point that it would not drain, and so I elected not to leave the drain. Remov ed it and closed the hole with august, which was dressed with bacitracin. The patient will be taken to the operating room. KATIE will be placed to bulb suction. Pollock will be placed subgaleal. He will b e taken tomorrow for a CAT scan and sedation allowed to slowly lighten. Overall, we expect his progno sis to be poor. FLUIDS: 1100 mL of crystalloid. URINE OUTPUT: Not recorded. DRAINS: One KATIE in the subgaleal space to bulb suction. One ventricular-type drain in the subdural sp nick to a Pollock bag. COMPLICATIONS: None. /[id number]/MODL
--- NOTE | 2018-09-28 14:52 | CPEKG ---
Test Reason : OPEN Blood Pressure : / mmHG Vent. Rate : 058 BPM Atrial Rate : 000 BPM P-R Int : 196 ms QRS Dur : 141 ms QT Int : 485 ms P-R-T Axes : 000 -54 -36 degrees QTc Int : 477 ms Atrial fibrillation Nonspecific IVCD with LAD Left ventricular hypertrophy Anterior Q waves, possibly due to LVH Confirmed by Chavez Henderson ([id number]) on 09/28/2018 2:52:00 PM Referred By: Benedict Christopher Confirmed By:Chavez Henderson
[2018-09-28] MEDS: levETIRAcetam 750 MG in NS 100 ML IV SCH ×2 (15:14→20:58)
[2018-09-28] MEDS: LISINOPRIL 20 MG TAB TUBE SCH (20:50)
[2018-09-28] MEDS: EZETIMIBE 10 MG TAB TUBE SCH (20:50)
[2018-09-28] MEDS: Finasteride [Propecia] 1 MG PO SCH (21:28)
[2018-09-29] MEDS: NS 1,000 ML IV SCH ×2 (01:25→15:46)
--- NOTE | 2018-09-29 06:57 | NEUSURGPN ---
Date of Surgery: 09/28/18 Post Op Day: 1 Assessment/Plan: Assessment: 73 yo male POD #4 s/p initial left frontal craniotomy for evacuation of subdural hematoma causing significant brain compression. Pt then developed a reaccumulation of blood and midline shift and taken back for a left sided craniectomy. POD #1 Plan: -neuro: moves all extremities to painful stimuli-more brisk today, does not open eyes or follow commands. Stable exam per RN this am -resting -minimal sedation -continue subgaleal and subdural drain -SBP <140 -postop CT shows some improvement in brain compression and evacuation of SDH -flap sunken -continue q1 hour neuro checks -appreciate critical care following -Na 141 -discussed with Dr. Christopher -call with any questions or concerns Subjective: No new events per RN. Resting. Objective: Intubated PERR- sluggish but reactive Does not open eyes to pain Does not follow commands MINA X4 to painful stimuli and to oral care-improved from yesterday dressing clean and dry-telfa in place Neuro Check Frequency: per routine Urinary Catheter in Place: No Catheter Insertion Date: 09/25/18 - Physician Discussed Patient with Dr.: Rob Patient Seen by .: Rob Neurosurgery Physical Exam - Vitals, I&O, Labs I and O 09/28/18 09/29/18 09/30/18 05:59 05:59 05:59 Intake Total 2135 2004 Output Total 1070 1289 Balance 1065 715 Weight 78.7 kg Intake: IV Intake (ml) 500 IV Infused (ml) 1758 1109 Ns 1,000 ml @ 50 mls/hr 1652 1069 IV CONT BUNNY Rx#: [id number] Propofol/Emulsion 100 ml 47 10 @ Per Protocol IV CONT BUNNY Rx#:[id number] fentaNYL 1,000 mcg In Ns 59 30 100 ml @ Per Protocol IV CONT BUNNY Rx#:[id number] Tube Feeding (ml) 227 195 Tube Flush (ml) 150 200 Output: Urine (ml) 975 1100 Catheter 975 1100 OG Tube Output (ml) 25 Large Bore (>12 Maori) 25 Non-weighted CSF Drainage Amount 124 Left 124 Other Neuro Drain Output 30 (ml) Left 30 KATIE Drain Output (ml) 70 35 Head 70 35 Other: Number of Voids Catheter 1 Number of Stools Catheter 0 0 Vital Signs Temp Pulse Resp BP Pulse Ox 36.8 C 72 15 108/55 L 97 09/29/18 06:00 09/29/18 06:00 09/29/18 06:00 09/29/18 06:00 09/29/18 06:00 Laboratory Results 09/27/18 04:15 09/29/18 06:10 ICD10 Worksheet Patient Problems: Problems Problem Status Onset Acute cerebral hemorrhage Acute Acute coronary syndrome Acute Chronic Disease Mgmt/Transitional Care Acute
[2018-09-29] MEDS: levETIRAcetam 750 MG in NS 100 ML IV SCH ×2 (09:45→20:39)
[2018-09-29] MEDS: FAMOTIDINE 20 MG TAB TUBE SCH ×2 (09:45→20:35)
[2018-09-29] MEDS: CHLORHEXIDINE GLUCONATE 15 ML UDL PO SCH ×2 (09:45→20:35)
[2018-09-29] MEDS: ATORVASTATIN CALCIUM 40 MG TAB TUBE SCH (09:45)
--- NOTE | 2018-09-29 09:47 | PDINTPN ---
Efficiency Engineer Progress Note Assessment/Plan: Assessment/plan: * Subdural hematoma-status post evacuation. Operating room yesterday for bone flap -per Neurosurgery * Mental status-no improvement, despite being off sedation. Coma * Basilar atelectasis * Acute respiratory failure secondary to subdural hematoma and atelectasis. On ventilator protocol. -currently stable on mechanical ventilation -did well on CPAP trial. Unable to perform weaning parameters. -not ready for extubation at this time * Sedation-off * History of aortic valve replacement * History of coronary artery disease with coronary artery bypass graft * Shock-resolved * History of hypertension and hyperlipidemia * Acute blood-loss anemia-improved * Nutrition-none at this time * VTE prophylaxis-on SCDs. No anticoagulation for now. * Prognosis-Grim for meaningful recovery Subjective: Coma Objective: Vital Signs Temp Pulse Resp BP Pulse Ox 36 C 73 16 156/59 H 100 09/29/18 09:00 09/29/18 09:00 09/29/18 09:00 09/29/18 09:00 09/29/18 09:00 Laboratory Results 09/27/18 04:15 09/29/18 06:10 09/28/18 09/29/18 09/30/18 05:59 05:59 05:59 Intake Total 2135 2004 Output Total 1070 1289 15 Balance 1065 715 -15 PT 15.3 SEC (12.0-15.0) H 09/27/18 04:15 INR 1.19 (0.83-1.16) H 09/27/18 04:15 - Time Spent With Patient Time Spent With Patient: 35 min of critical care time spent with patient, Case discussed with Nursing, Respiratory therapy and family Physical Exam - Physical Exam General Appearance: obtunded, No alert EENT: PERRL/EOMI, ET tube Neck: non-tender Respiratory: crackles (Few), No wheezing Cardiac/Chest: normal peripheral pulses, regular rate, rhythm Peripheral Pulses: 2+: carotid (R), carotid (L), femoral (R), femoral (L), dorsalis-pedis (R), dorsalis-pedis (L) Abdomen: normal bowel sounds, non-tender, soft Male Genitalia: deferred Rectal: deferred Skin: warm/dry Extremities: non-tender Neuro/Psych: other (Coma), No alert ICD10 Worksheet Patient Problems: Problems Problem Status Onset Acute cerebral hemorrhage Acute Acute coronary syndrome Acute Chronic Disease Mgmt/Transitional Care Acute
[2018-09-29] MEDS: SENNOSIDES 17.6 MG/10 ML UDL TUBE SCH ×2 (10:08→20:35)
--- NOTE | 2018-09-29 15:23 | ASMTCMCOM ---
CM Note CM Note Notes: A family meeting was held today with the patient's , Jada, son, Antwon, daughters, Anabel and Kendy. Staff in attendance were Ashley Hampton, Nurse Sql Ssis Developer, Tito Zuniga, Spiritual Care and Jessy Paris, Carrier Washer, Helper Animal Laboratory. The family had questions about an MRI which extended family members were inquiring about. BLAYNE contacted Dr. Trinidad to request she call or stop by the patient's room to answer the family's questions. The family also had some concerns regarding financial coverage for services. Spoke with Lolly, however, she was leaving and she stated they were short staffed today and therefore couldn't meet with them today. BLAYNE left a message for aFni to see if she could give Jada a call. Tito provided handouts for the family to give them guidance on managing issues after the patient passes away. He also provided a list of mortuary's to help them handle buriel arrangements. Ashley will make the call to [facility], though the family states the patient did not want to donate his organs. Donar Davenport can check their registry. The current plan is for friends and family to come by to say their goodbyes and the family is thinking they will withdraw life support tomorrow sometime. BLAYNE will follow. Date Signed: 09/29/2018 03:23 PM Electronically Signed By:Jessy Paris LCSW
[2018-09-29] MEDS ORDERED: NS BOLUS 500 ML (Wide open) IV ONE ×2 (16:00→18:00)
[2018-09-29] MEDS ORDERED: ALBUMIN 5% 250 ML BOTTLE IV ONE (16:57)
[2018-09-29] MEDS ORDERED: ALBUMIN 5% 250 ML IV ONE (17:00)
[2018-09-29] MEDS: LISINOPRIL 20 MG TAB TUBE SCH (20:35)
[2018-09-29] MEDS: EZETIMIBE 10 MG TAB TUBE SCH (20:35)
[2018-09-29] MEDS: Finasteride [Propecia] 1 MG PO SCH (20:36)
[2018-09-30] MEDS: NS 1,000 ML IV SCH (05:32)
--- NOTE | 2018-09-30 07:27 | NEUSURGPN ---
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 Family met with Dr Rivas last night and the plan to withdraw care today. We support the families decision. on keppra continue current care for now please call with questions or issues patient seen by Dr Rivas Subjective: chart reviewed, discussed care with son. Objective: intubated/sedated Pupils: 3 mm ou postures to painful stimuli C/D/I Neuro Check Frequency: Q1 Urinary Catheter in Place: Yes Urinary Catheter Indication: Accurate I & O Required Catheter Insertion Date: 09/25/18 - Physician Patient Seen by : Rob Neurosurgery Physical Exam - Vitals, I&O, Labs I and O 09/29/18 09/30/18 10/01/18 05:59 05:59 05:59 Intake Total 2003 3805 Output Total 1289 1273 Balance 715 2532 Weight 78.7 kg Intake: IV Intake (ml) 500 100 IV Infused (ml) 1109 3116 Ns 1,000 ml @ 100 mls/hr 1069 3116 IV CONT BUNNY Rx#: [id number] Propofol/Emulsion 100 ml 10 @ Per Protocol IV CONT BUNNY Rx#:[id number] fentaNYL 1,000 mcg In Ns 30 100 ml @ Per Protocol IV CONT BUNNY Rx#:[id number] Tube Feeding (ml) 195 339 Tube Flush (ml) 200 250 Output: Urine (ml) 1100 980 Catheter 1100 980 CSF Drainage Amount 124 96 Left 124 96 Other Neuro Drain Output 30 105 (ml) Left 30 105 KATIE Drain Output (ml) 35 92 Head 35 92 Other: Number of Voids Catheter 1 Number of Stools Catheter 0 1 Vital Signs Temp Pulse Resp BP Pulse Ox 37.8 C 83 18 120/65 100 09/30/18 06:00 09/30/18 06:00 09/30/18 06:00 09/30/18 06:00 09/30/18 06:00 Laboratory Results 09/27/18 04:15 09/29/18 06:10 ICD10 Worksheet Patient Problems: Problems Problem Status Onset Acute cerebral hemorrhage Acute Acute coronary syndrome Acute Chronic Disease Mgmt/Transitional Care Acute
[2018-09-30] MEDS: levETIRAcetam 750 MG in NS 100 ML IV SCH (08:10)
[2018-09-30] MEDS: FAMOTIDINE 20 MG TAB TUBE SCH (08:10)
[2018-09-30] MEDS: ATORVASTATIN CALCIUM 40 MG TAB TUBE SCH (08:10)
[2018-09-30] MEDS: CHLORHEXIDINE GLUCONATE 15 ML UDL PO SCH (08:12)
[2018-09-30] MEDS: SENNOSIDES 17.6 MG/10 ML UDL TUBE SCH (09:06)
--- NOTE | 2018-09-30 09:07 | PDINTPN ---
Boiler Service Technician Progress Note Assessment/Plan: Assessment/plan: * Subdural hematoma-status post evacuation. Operating room yesterday for bone flap -per Neurosurgery * Mental status-no improvement, despite being off sedation. Coma * Basilar atelectasis * Acute respiratory failure secondary to subdural hematoma and atelectasis. On ventilator protocol. -currently stable on mechanical ventilation -did well on CPAP trial. Unable to perform weaning parameters. -not ready for extubation at this time * Sedation-off * History of aortic valve replacement * History of coronary artery disease with coronary artery bypass graft * Shock-resolved * History of hypertension and hyperlipidemia * Acute blood-loss anemia-improved * Nutrition-none at this time * VTE prophylaxis-on SCDs. No anticoagulation for now. * Prognosis-Grim for meaningful recovery. Anticipate withdrawal of support later on today Subjective: Coma Objective: Vital Signs Temp Pulse Resp BP Pulse Ox 38 C 76 22 H 108/51 L 100 09/30/18 09:00 09/30/18 09:00 09/30/18 09:00 09/30/18 09:00 09/30/18 09:00 Laboratory Results 09/27/18 04:15 09/29/18 06:10 09/29/18 09/30/18 10/01/18 05:59 05:59 05:59 Intake Total 2003 3805 Output Total 1289 1273 35 Balance 715 2532 -35 PT 15.3 SEC (12.0-15.0) H 09/27/18 04:15 INR 1.19 (0.83-1.16) H 09/27/18 04:15 - Time Spent With Patient Time Spent With Patient: 35 min of critical care time spent with patient, Case discussed with Respiratory therapy and Nursing Physical Exam - Physical Exam General Appearance: obtunded, No alert EENT: ET tube Neck: supple Respiratory: crackles (Few basilar), rhonchi (Few), No respiratory distress, No wheezing Cardiac/Chest: normal peripheral pulses, regular rate, rhythm, systolic murmur Abdomen: normal bowel sounds, non-tender, soft Male Genitalia: deferred Rectal: deferred Skin: warm/dry Extremities: normal inspection Neuro/Psych: other (Coma), No alert ICD10 Worksheet Patient Problems: Problems Problem Status Onset Acute cerebral hemorrhage Acute Acute coronary syndrome Acute Chronic Disease [facility]/Transitional Care Acute
[2018-09-30 14:19] VITALS: BP 125/65
--- NOTE | 2018-09-30 15:22 | PDINTPN ---
[employer] Progress Note Assessment/Plan: Assessment/plan: * Subdural hematoma-status post evacuation. Operating room yesterday for bone flap -per Neurosurgery * Mental status-no improvement, despite being off sedation. Coma * Basilar atelectasis * Acute respiratory failure secondary to subdural hematoma and atelectasis. On ventilator protocol. -currently stable on mechanical ventilation -did well on CPAP trial. Unable to perform weaning parameters. -not ready for extubation at this time * Sedation-off * History of aortic valve replacement * History of coronary artery disease with coronary artery bypass graft * Shock-resolved * History of hypertension and hyperlipidemia * Acute blood-loss anemia-improved * Nutrition-none at this time * VTE prophylaxis-on SCDs. No anticoagulation for now. * Prognosis-Grim for meaningful recovery. Anticipate withdrawal of support later on today Long discussion with the patient's family. Given his poor prognosis it is their request that all support be withdrawn and patient be made comfortable. He is do not resuscitate. Will abide by their wishes Objective: Vital Signs Temp Pulse Resp BP Pulse Ox 38.2 C 96 25 H 125/65 H 100 09/30/18 14:00 09/30/18 14:00 09/30/18 14:00 09/30/18 14:00 09/30/18 14:00 Laboratory Results 09/27/18 04:15 09/29/18 06:10 09/29/18 09/30/18 10/01/18 05:59 05:59 05:59 Intake Total 2003 3805 Output Total 1289 1273 69 Balance 715 2532 -69 PT 15.3 SEC (12.0-15.0) H 09/27/18 04:15 INR 1.19 (0.83-1.16) H 09/27/18 04:15 ICD10 Worksheet Patient Problems: Problems Problem Status Onset Acute cerebral hemorrhage Acute Acute coronary syndrome Acute Chronic Disease Mgmt/Transitional Care Acute
[2018-09-30] MEDS ORDERED: SCOPOLAMINE HYDROBROMIDE 1 MG/3 DAYS PATCH TD PRN (15:23)
[2018-09-30] MEDS: LORazepam 2 MG/ML INJ IVP PRN ×2 (15:45→17:35)
== END 2018-10-01 03:39 | disposition expired | DRG 25 ==
LOC: OBSVTOIN 21:16 → F2N 21:36
PROVIDERS: ADMIT Neurological Surgery; ATTEND Neurological Surgery
PROC: 0BH18EZ Insertion of Endotracheal Airway into Trachea, Via Natural or Artificial Opening Endoscopic (ICD-10-PCS; 2018-09-25)
PROC: 5A1955Z Respiratory Ventilation, Greater than 96 Consecutive Hours (ICD-10-PCS; 2018-09-25)
PROC: 30233R1 Transfusion of Nonautologous Platelets into Peripheral Vein, Percutaneous Approach (ICD-10-PCS; 2018-09-25)
PROC: 00C30ZZ Extirpation of Matter from Intracranial Epidural Space, Open Approach (ICD-10-PCS; principal; 2018-09-25 18:31)
PROC: 30233N1 Transfusion of Nonautologous Red Blood Cells into Peripheral Vein, Percutaneous Approach (ICD-10-PCS; 2018-09-26)
PROC: 00C40ZZ Extirpation of Matter from Intracranial Subdural Space, Open Approach (ICD-10-PCS; 2018-09-28)
PROC: 00C30ZZ Extirpation of Matter from Intracranial Epidural Space, Open Approach (ICD-10-PCS; 2018-09-28)
DX: S06.5X0A Traumatic subdural hemorrhage without loss of consciousness, initial encounter (principal); W01.10XA Fall on same level from slipping, tripping and stumbling with subsequent striking against unspecified object, initial encounter; J96.00 Acute respiratory failure, unspecified whether with hypoxia or hypercapnia; I63.533 Cerebral infarction due to unspecified occlusion or stenosis of bilateral posterior cerebral arteries; D62 Acute posthemorrhagic anemia; R57.9 Shock, unspecified; S01.01XD Laceration without foreign body of scalp, subsequent encounter; J98.11 Atelectasis; I48.91 Unspecified atrial fibrillation; I25.10 Atherosclerotic heart disease of native coronary artery without angina pectoris; I10 Essential (primary) hypertension; N40.0 Benign prostatic hyperplasia without lower urinary tract symptoms; E78.5 Hyperlipidemia, unspecified; Y92.019 Unspecified place in single-family (private) house as the place of occurrence of the external cause; Z95.2 Presence of prosthetic heart valve; Z79.01 Long term (current) use of anticoagulants; Z79.02 Long term (current) use of antithrombotics/antiplatelets; Z95.1 Presence of aortocoronary bypass graft; Z51.5 Encounter for palliative care; Z66 Do not resuscitate
CPT/HCPCS: 82435-PO; 82565-PO; 82947-PO; 84132-PO; 84295-PO; 84484-ER; 84520-PO; 85014-ER; 96365; C1713; C1729; C1768; J0171; J0330; J0690; J1100; J1580; J1953; J2060; J2250; J2270; J2370; J2597; J2704; J3010; J3360; P9016; P9035; P9041; P9100; Q9967